=== PATIENT | female | born 1965 | race Caucasian/White ===

== ENCOUNTER 2020-04-17 20:01 | Emergency (ER) | payer MEDICAID ==
[~2020-04-17] VITALS: Ht 172.7 cm; Wt 65.9 kg
[2020-04-17] MEDS ORDERED: CEPH-585 PO (20:41)
[2020-04-17] MEDS ORDERED: SULF1TAB49 PO (20:41)
[2020-04-17 20:58] VITALS: BP 124/74
== END 2020-04-17 20:59 | disposition home or self-care (01) ==
LOC: ER 20:01
DX: L02.811 Cutaneous abscess of head [any part, except face] (principal); Z79.2 Long term (current) use of antibiotics
CPT/HCPCS: 99283

== ENCOUNTER 2023-03-03 10:24 | Emergency (ER) | payer MEDICAID ==
[~2023-03-03] VITALS: Ht 172.7 cm; Wt 65.1 kg
[2023-03-03 13:01] VITALS: BP 159/88; PULSE 70; RESP 18; TEMP 97.9; O2SAT 99
[2023-03-03] MEDS ORDERED: PRED20TA PO ×2 (13:21→13:27)
== END 2023-03-03 13:52 | disposition home or self-care (01) ==
LOC: ER 10:25
DX: J06.9 Acute upper respiratory infection, unspecified (principal); Z20.822 Contact with and (suspected) exposure to COVID-19
CPT/HCPCS: 36415; 71046; 87634; 87811; 99284

== ENCOUNTER 2023-03-05 12:10 | Emergency (ER) | payer MEDICAID ==
[~2023-03-05] VITALS: Ht 172.7 cm; Wt 66.0 kg
[~2023-03-05 12:10] MED LIST: PRED20TA PO
[2023-03-05 12:23] VITALS: BP 125/69; PULSE 80; TEMP 97.1; O2SAT 100
[2023-03-05 16:25] LABS: BASOPHILS % (AUTO) 0.1 % (0-1); EOSINOPHILS % (AUTO) 0 % (0-6); HEMATOCRIT 39.7 % (35.0-45.0); HEMOGLOBIN 13.5 g/dl (12.0-16.0); LYMPHOCYTES # (AUTO) 1.2 X10'3 (1.1-4.8); LYMPHOCYTES % (AUTO) 11.1 % (21-51); MEAN CORPUSCULAR HEMOGLOBIN 31.7 PG (27.0-31.0); MEAN CORPUSCULAR HGB CONC 33.9 g/dL (33.0-36.5); MEAN CORPUSCULAR VOLUME 93.4 FL (78-98); MEAN PLATELET VOLUME 7.7 FL (7.4-10.4); MONOCYTES # (AUTO) 1.1 X10'3 (0-0.9); MONOCYTES % (AUTO) 9.8 % (2-12); NEUTROPHILS # (AUTO) 8.8 X10'3 (1.8-7.7); PLATELET COUNT 330 X10'3 (140-440); RED BLOOD COUNT 4.25 X10'6 (4.20-5.60); RED CELL DISTRIBUTION WIDTH 13.3 % (11.5-14.5); WHITE BLOOD COUNT 11.1 X10'3 (4.5-11.0)
[2023-03-05 16:39] LABS: ALANINE AMINOTRANSFERASE 25 U/L (12-78); ALBUMIN/GLOBULIN RATIO 0.6 (1.1-1.5); ALKALINE PHOSPHATASE 122 IU/L (46-116); ANION GAP 10 (8-16); ASPARTATE AMINO TRANSFERASE 17 U/L (10-37); BILIRUBIN,TOTAL 0.5 MG/DL (0.1-1.0); BLOOD UREA NITROGEN 11 MG/DL (7-18); BUN/CREATININE RATIO 17.2 (10.0-20.0); CALCIUM 9.6 MG/DL (8.5-10.1); CHLORIDE 99 MMOL/L (99-107); CREATININE 0.64 MG/DL (0.40-0.90); GLUCOSE 140 MG/DL (70-104); POTASSIUM 3.9 MMOL/L (3.5-5.1); SODIUM 134 MMOL/L (135-145); TOTAL CARBON DIOXIDE 24.9 MMOL/L (24-32); TOTAL PROTEIN 8.3 G/DL (6.4-8.2); eCRCL 95 ML/MIN; eGFR > 90 ML/MIN
[2023-03-05] MEDS ORDERED: iohexol 350MG/ML 100ml bottle IV ONE (16:58)
[2023-03-05 17:52] VITALS: RESP 18
[2023-03-05] MEDS ORDERED: DOXYCYCLINE 100MG CAPSULE PO STA (18:11)
[2023-03-05] MEDS ORDERED: amox tr/potassium clavulanate 875/125mg TAB PO ONE (18:15)
[2023-03-05] MEDS ORDERED: AMOX-117 PO (18:23)
[2023-03-05] MEDS ORDERED: DOXY-457 PO (18:23)
== END 2023-03-05 19:10 | disposition home or self-care (01) ==
LOC: ER 12:15
DX: J18.9 Pneumonia, unspecified organism (principal); J44.9 Chronic obstructive pulmonary disease, unspecified; F17.200 Nicotine dependence, unspecified, uncomplicated; Z79.2 Long term (current) use of antibiotics; Z79.899 Other long term (current) drug therapy
CPT/HCPCS: 36415; 71045; 71275; 80053; 85025; 85379; 99285; J3490; Q9967

== ENCOUNTER 2024-04-30 12:57 | Emergency (ER) | payer MEDICAID ==
[~2024-04-30] VITALS: Ht 172.7 cm; Wt 70.0 kg
[2024-04-30 13:05] VITALS: BP 126/68; PULSE 96; RESP 16; O2SAT 100
[2024-04-30] MEDS ORDERED: AZIT-21 PO (15:13)
[2024-04-30] MEDS ORDERED: ALBU18HF2 INH (15:13)
[2024-04-30] MEDS ORDERED: GUAI120015 PO (15:13)
[2024-04-30] MEDS ORDERED: PRED20TA PO (15:13)
[2024-04-30 15:55] VITALS: TEMP 98.7
== END 2024-04-30 15:56 | disposition home or self-care (01) ==
LOC: ER 12:58
DX: J44.1 Chronic obstructive pulmonary disease with (acute) exacerbation (principal); R11.0 Nausea; R63.0 Anorexia; Z79.899 Other long term (current) drug therapy; Z20.822 Contact with and (suspected) exposure to COVID-19
CPT/HCPCS: 36415; 71045; 87502; 87503; 87811; 99284

== ENCOUNTER 2024-05-16 09:55 | Emergency (ER) | payer MEDICAID ==
[~2024-05-16] VITALS: Ht 172.7 cm; Wt 65.0 kg
[~2024-05-16 09:55] MED LIST changes: +ALBU18HF2 INH; +GUAI120015 PO
[2024-05-16 11:27] LABS: ALANINE AMINOTRANSFERASE 15 U/L (12-78); ALBUMIN 3.1 G/DL (3.4-5.0); ALBUMIN/GLOBULIN RATIO 0.6 (1.1-1.5); ALKALINE PHOSPHATASE 107 IU/L (46-116); ANION GAP 7 (8-16); BILIRUBIN,TOTAL 0.5 MG/DL (0.1-1.0); BLOOD UREA NITROGEN 10 MG/DL (7-18); BUN/CREATININE RATIO 13.9 (10.0-20.0); CALCIUM 8.5 MG/DL (8.5-10.1); CHLORIDE 94 MMOL/L (99-107); CREATININE 0.72 MG/DL (0.40-0.90); GLUCOSE 88 MG/DL (70-104); LIPASE 19 U/L (16-77); SODIUM 126 MMOL/L (135-145); TOTAL CARBON DIOXIDE 24.7 MMOL/L (24-32); TOTAL PROTEIN 8.5 G/DL (6.4-8.2); eCRCL 83 ML/MIN; eGFR 82 ML/MIN
[2024-05-16 11:29] LABS: ASPARTATE AMINO TRANSFERASE 18 U/L (10-37); POTASSIUM 4.4 MMOL/L (3.5-5.1)
[2024-05-16] MEDS ORDERED: LIDOcaine 2% Viscous 15ml cup MM PRN (11:55)
[2024-05-16] MEDS: dicyclomine 10mg/5ml oral solution 5ml UD bottle PO ONE (11:55)
[2024-05-16] MEDS ORDERED: normal saline 1000ML IV soln IVB ONE (11:55)
[2024-05-16 12:02] LABS: BASOPHILS % (AUTO) 0.6 % (0-1); NEUTROPHILS # (AUTO) 4.2 X10'3 (1.8-7.7)
[2024-05-16 12:05] LABS: EOSINOPHILS % (AUTO) 0.2 % (0-6); HEMOGLOBIN 13.8 g/dl (12.0-16.0); LYMPHOCYTES # (AUTO) 1.8 X10'3 (1.1-4.8); LYMPHOCYTES % (AUTO) 25.1 % (21-51); MEAN CORPUSCULAR HEMOGLOBIN 31.3 PG (27.0-31.0); MEAN CORPUSCULAR HGB CONC 33.8 g/dL (33.0-36.5); MEAN CORPUSCULAR VOLUME 92.5 FL (78-98); MEAN PLATELET VOLUME 7.1 FL (7.4-10.4); MONOCYTES % (AUTO) 14.1 % (2-12); PLATELET COUNT 393 X10'3 (140-440); RED BLOOD COUNT 4.43 X10'6 (4.20-5.60); RED CELL DISTRIBUTION WIDTH 13.4 % (11.5-14.5); WHITE BLOOD COUNT 7.1 X10'3 (4.5-11.0)
[2024-05-16] MEDS ORDERED: NICO-731 TOP (12:55)
[2024-05-16] MEDS ORDERED: FAMO40TA59 PO (12:55)
[2024-05-16 13:10] LABS: BILIRUBIN,URINE NEGATIVE (Neg); CLARITY,URINE CLEAR (Clear); COLOR,URINE YELLOW (Yellow); GLUCOSE, URINE NEGATIVE (Neg); KETONES,URINE NEGATIVE (Neg); LEUKOCYTE ESTERASE ,URINE NEGATIVE (Neg); NITRITES, URINE NEGATIVE (Neg); OCCULT BLOOD,URINE NEGATIVE (Neg); PROTEIN,URINE NEGATIVE (Neg); UROBILINOGEN,URINE 0.2 E.U/dL (0.2-1.0)
[2024-05-16 13:11] LABS: UA COLLECTION TYPE CLN CATCH MIDSTREAM; URINE HCG NEGATIVE (NEG)
[2024-05-16] MEDS: mag hydrox/Alum hydrox/simeth 30ml oral suspension PO ONE (13:12)
[2024-05-16] MEDS: normal saline 500ml IV soln 500 ML IV ONE (13:13)
[2024-05-16] MEDS: dicyclomine 10 MG capsule PO ONE (13:13)
[2024-05-16 14:13] VITALS: BP 107/63; PULSE 91; RESP 16; TEMP 98.5; O2SAT 100
== END 2024-05-16 14:14 | disposition home or self-care (01) ==
LOC: ER 09:55
DX: E87.1 Hypo-osmolality and hyponatremia (principal); K21.9 Gastro-esophageal reflux disease without esophagitis; K29.00 Acute gastritis without bleeding; J44.9 Chronic obstructive pulmonary disease, unspecified; F17.210 Nicotine dependence, cigarettes, uncomplicated
CPT/HCPCS: 36415; 71045; 76700; 80053; 81003; 81025; 83690; 84300; 85025; 96360; 99284; J7040

== ENCOUNTER 2024-07-08 14:52 | Inpatient (IN) | payer MEDICAID ==
[~2024-07-08] VITALS: Ht 172.7 cm; Wt 70.0 kg
[~2024-07-08 14:52] MED LIST changes: +FAMO40TA59 PO; +NICO-731 TOP; -PRED20TA PO; +naloxone 0.4 mg/ml inj ONE
--- NOTE | 2024-07-08 15:18 | Physician Documentation ---
History of Present Illness ~ Chief Complaint: Overdose Stated Complaint: OD Time Seen by MD: 15:17 Primary Medical Doctor: Dr Springer, Kellee LOFTON The patient presents with reported accidental overdose of fentanyl. She thought she was snorting a line of cocaine, and then stopped breathing. EMS gave 2 doses of Narcan and then she did wake up. Here now in the ED, the patient tells me that she feels hot and nauseous. She denies any history of fentanyl use or intentional fentanyl use. She thought she was using cocaine. She also drinks alcohol daily, tells me that she drank about 6 drinks today, which she normally drinks every day. She denies any other symptoms. Denies any trauma. No shortness of breath. Medication Reconciliation Allergies: Coded Allergies: No Known Allergies (Unverified , 03/05/23) Miscellaneous Medications Home Med List (No Home Medications), (Reported) Discontinued Medications Albuterol Sulfate (Ventolin Hfa), 2 PUFFS INH Q4HPRN PRN for wheezing Discontinued Reason: Other Famotidine (Famotidine), 1 TAB PO HS Discontinued Reason: Other Guaifenesin (Mucinex), 1 TAB PO Q12H Discontinued Reason: Other Nicotine (Nicotine Patch), 1 PATCH TOP DAILY Discontinued Reason: Other Past Medical History Past Medical History: COPD Past Surgical History: no surgical history Alcohol Use: None Drug Use: none Lives In: Home Review of Systems Respiratory: Denies: shortness of breath Cardiovascular: Reports: diaphoresis; Denies: chest pain Gastrointestinal: Reports: nausea Neurological: Denies: headache Physical Exam Vital Signs: Temperature: 98.7, Source: Temporal, Heart Rate: 86, Respiratory Rate: 15, BP: 114/59, Pulse Oximetry: 100, Weight: 70.000 Physical Exam General: This is a mildly sedated appearing middle-aged woman, diaphoretic and soaking the sheets HEENT: Atraumatic, oropharynx appears dry. Pupils are 2 mm and symmetric Heart: Regular rate and rhythm, normal-appearing peripheral perfusion Lungs: Appears to have mild respiratory depression. Clear breath sounds bilateral, normal oxygen saturation on room air Abdomen: Soft, nondistended, nontender all quadrants Extremities: Warm and well-perfused. No traumatic findings Neuro: The patient appears sedated, but does respond to voice and answers questions appropriately. Psychiatric: Sedated, slow to respond Progress Results/Orders Results/Orders Orders - LIAM CAZARES MD Page Hospitalist (07/08/24 19:44) Fill Out Med Reconciliation (07/08/24 19:44) Completed Orders - LIAM CAZARES MD Naloxone 0.4 Mg/Ml Inj (Narcan 0.4mg/Ml (07/08/24 19:45) Normal Saline 500ml... W/Naloxone 2mg/2m (07/08/24 20:35) Naloxone 0.4 Mg/Ml Inj (Narcan 0.4mg/Ml (07/08/24 20:45) Medications Received in ER Medications (Trade) Dose Ordered Sig/Erin Route PRN Reason Start Time Stop Time Status Last Admin Dose Admin (Narcan 0.4mg/ml inj) 0.4 mg ONCE ONCE IV 07/08/24 19:45 07/08/24 19:46 DC 07/08/24 19:49 0.4 MG Naloxone HCl 2 mg/ Sodium Chloride 500 ml @ 25 mls/hr Q20H IV 07/08/24 20:35 07/08/24 22:50 DC 07/08/24 21:08 25 MLS/HR (Narcan 0.4mg/ml inj) 0.4 mg ONCE ONCE IV 07/08/24 20:45 07/08/24 20:50 DC 07/08/24 20:58 0.4 MG Sodium Chloride 1,000 ml @ 100 mls/hr Q10H IV 07/08/24 21:55 07/08/24 22:59 100 MLS/HR Vital Signs 07/08/24 07/08/24 07/08/24 07/08/24 14:55 15:02 16:42 16:46 Temp 98.7 Pulse 86 68 67 Resp 15 15 10 12 B/P (MAP) 114/59 121/70 (87) Pulse Ox 100 63 97 O2 Flow Rate 2.0 07/08/24 07/08/24 07/08/24 07/08/24 18:16 18:35 18:36 19:49 Pulse 69 70 78 Resp 10 16 12 10 B/P (MAP) 128/68 (88) 122/73 Pulse Ox 68 100 90 O2 Flow Rate 0 07/08/24 07/08/24 07/08/24 07/08/24 19:58 20:58 21:05 22:00 Pulse 58 66 60 74 Resp 17 6 16 16 B/P (MAP) 134/77 (96) 123/79 (94) 137/76 (96) Pulse Ox 100 100 98 99 O2 Flow Rate 2.0 2.0 Laboratory Tests Test 07/08/24 18:05 07/08/24 18:19 07/08/24 22:04 White Blood Count 6.9 Red Blood Count 4.24 Hemoglobin 13.0 Hematocrit 39.1 Mean Corpuscular Volume 92.3 Mean Corpuscular Hemoglobin 30.8 Mean Corpuscular Hemoglobin Concent 33.3 Red Cell Distribution Width 15.1 H Platelet Count 259 Mean Platelet Volume 8.0 Neutrophils (%) (Auto) 80.9 H Lymphocytes (%) (Auto) 10.0 L Monocytes (%) (Auto) 8.3 Eosinophils (%) (Auto) 0.3 Basophils (%) (Auto) 0.5 Neutrophils # (Auto) 5.5 Lymphocytes # (Auto) 0.7 L Monocytes # (Auto) 0.6 Eosinophils # (Auto) 0.0 Basophils # (Auto) 0.0 CBC Comment Sodium Level 140 Potassium Level 4.5 Chloride Level 106 Carbon Dioxide Level 29.4 Anion Gap 5 L Blood Urea Nitrogen 17 Creatinine 0.79 Estimated GFR/1.73 m2 74 BUN/Creatinine Ratio 21.5 H Glucose Level 111 H Calcium Level 8.7 Total Bilirubin 0.4 Aspartate Amino Transf (AST/SGOT) 49 H Alanine Aminotransferase (ALT/SGPT) 33 Alkaline Phosphatase 120 H Total Protein 7.5 Albumin 3.9 Globulin 3.6 Albumin/Globulin Ratio 1.1 Chemistry Comments Ethyl Alcohol Level < 10 Glucometer 98 Urine Specimen Description Cln catch midstream Urine Color Yellow Urine Clarity Clear Urine pH 6.0 Urine Specific [place] >=1.030 Urine Protein 30 H Urine Glucose (UA) Negative Urine Ketones Negative Urine Occult Blood Negative Urine Nitrite Negative Urine Bilirubin Negative Urine Urobilinogen 0.2 Urine Leukocyte Esterase Negative Urine RBC 0-2 Urine WBC 0-4 Urine Squamous Epithelial Cells Few Urine Amorphous Urates 1+ Urine Bacteria None seen Urine Hyaline Casts 0-3 Urine Mucus Moderate Urine Culture Indicated Not ind Volume Urine Centrifuged 10 ml Urine Comment Urine Opiates Screen Negative Urine Methadone Screen Negative Urine Fentanyl Screen Negative Urine Barbiturates Screen Negative Urine Phencyclidine Screen Negative Urine Amphetamines Screen Negative Urine Benzodiazepines Screen Negative Urine Cocaine Screen Negative Urine Cannabinoids Screen Positive Drug Screen Comment Medical Decision Making Findings Dr. Cazares: Received care of patient to monitored until clinically sober however after 4 hours patient is continuing to have significant sedation requiring additional Narcan usage despite given Narcan in the field upon arrival in additional dose as well as a additional dose by myself therefore we will admit for continued monitoring and need for possible re administration of Narcan. Differential Dx:Considerations: Include: Alcohol abuse, Conversion disorder, Drug Overdose-Accidental, Drug Overdose-Intentional, Encephalopathy, Liver failure, Suicidal attempt Additional Comment Differential includes intracranial hemorrhage or head injury Assessment The patient presents with a likely opiate overdose. Here in the ED, she was somewhat sedated and slow to respond as well as diaphoretic. Initially it was unclear if this was actually an opiate overdose and so laboratory testing and a head CT were obtained. CT without intracranial hemorrhage or other acute abnormality. Labs are pending. She was given multiple doses of Narcan with good response. She will require further observation and possibly further Narcan or even admission if her symptoms do not improve. The patient was signed out at shift change, pending laboratory testing/urine drug screen and further observation. Departure Admitted to Inpatient Unit: yes, to hospitalist Impression: Primary Impression: Poisoning by opiate or related narcotic Referrals: NO PRIMARY CARE PROVIDER (PCP) Signature Scribe Signature: na Attestation: The note accurately reflects work and decisions made by me.Liam Cazares MD 07/08/24 19:55 na KIRSTEN PURVIS MD July 08, 2024 15:18 LIAM CAZARES MD July 08, 2024 19:50
[2024-07-08] MEDS: ondansetron/PF 4mg/2ml inj IV ONE (15:25)
[2024-07-08] MEDS: naloxone 0.4 mg/ml inj IV ONE ×4 (16:42→20:58)
--- NOTE | 2024-07-08 17:49 | RADIOLOGY REPORT ---
Procedure: CT CT [facility] Study Date and Requested Time: 07/08/2024 05:27 PM History: dizzy, overdose, altered Comparison: None Dose: CTDI: 41.98 mGy DLP: 680.8 mGycm Technique: Multiplanar images obtained through the brain without intravenous contrast. Findings: Normal brain volume and formation. Mild chronic small vessel ischemic changes. Bilateral basal gangli a physiologic calcification. No hemorrhages, masses, mass effect, midline shift, herniation or cytotoxic edema following a large v ascular territory. No intra-axial or extra-axial fluid collections. No evidence of hydrocephalus. The basal cisterns are patent. The pituitary gland, sella and parasellar regions are unremarkable. The cerebellar tonsils are in nor mal position. The cerebellum is unremarkable. The orbits and globes are unremarkable. The paranasal sinuses and mastoids are clear. There are no wo rrisome calvarial lesions. Impression: No evidence of acute intracranial abnormality.
[2024-07-08] MEDS: normal saline 1000ml 1,000 ML IV ONE (18:06)
[2024-07-08 18:58] LABS: BASOPHILS % (AUTO) 0.5 % (0-1); EOSINOPHILS % (AUTO) 0.3 % (0-6); HEMATOCRIT 39.1 % (35.0-45.0); LYMPHOCYTES # (AUTO) 0.7 X10'3 (1.1-4.8); MEAN CORPUSCULAR HEMOGLOBIN 30.8 PG (27.0-31.0); MEAN CORPUSCULAR HGB CONC 33.3 g/dL (33.0-36.5); MEAN CORPUSCULAR VOLUME 92.3 FL (78-98); MONOCYTES # (AUTO) 0.6 X10'3 (0-0.9); MONOCYTES % (AUTO) 8.3 % (2-12); NEUTROPHILS # (AUTO) 5.5 X10'3 (1.8-7.7); NEUTROPHILS % (AUTO) 80.9 % (42-75); PLATELET COUNT 259 X10'3 (140-440); RED BLOOD COUNT 4.24 X10'6 (4.20-5.60); RED CELL DISTRIBUTION WIDTH 15.1 % (11.5-14.5); WHITE BLOOD COUNT 6.9 X10'3 (4.5-11.0)
[2024-07-08 19:12] LABS: ALANINE AMINOTRANSFERASE 33 U/L (12-78); ALBUMIN 3.9 G/DL (3.4-5.0); ALBUMIN/GLOBULIN RATIO 1.1 (1.1-1.5); ALKALINE PHOSPHATASE 120 IU/L (46-116); ANION GAP 5 (8-16); ASPARTATE AMINO TRANSFERASE 49 U/L (10-37); BILIRUBIN,TOTAL 0.4 MG/DL (0.1-1.0); BLOOD UREA NITROGEN 17 MG/DL (7-18); BUN/CREATININE RATIO 21.5 (10.0-20.0); CALCIUM 8.7 MG/DL (8.5-10.1); CHLORIDE 106 MMOL/L (99-107); CREATININE 0.79 MG/DL (0.40-0.90); ETHANOL < 10 MG/DL (<10); GLUCOSE 111 MG/DL (70-104); POTASSIUM 4.5 MMOL/L (3.5-5.1); SODIUM 140 MMOL/L (135-145); TOTAL CARBON DIOXIDE 29.4 MMOL/L (24-32); TOTAL PROTEIN 7.5 G/DL (6.4-8.2); eCRCL 75 ML/MIN; eGFR 74 ML/MIN
[2024-07-08] MEDS: naloxone 2mg/2ml inj 2 MG in normal saline 500ml IV soln 498 ML IV SCH (21:08)
--- NOTE | 2024-07-08 21:25 | ELECTROCARDIOGRAPH REPORT ---
[facility] Test Date: 2024-07-08 Test Time: 21:23:35 Pat Name: MONTY GUZMAN Department: [facility]- Patient ID: [facility]-[id number] Room: [place] [address] Gender: F Continuous Wave Operator: : 1965 Requested By: SHAYE ZHANG Order Number: [id number] Reading MD: Dr. Patrice Conley Measurements Intervals [place] Rate: 57 P: 68 AK: 179 QRS: 1 QRSD: 152 T: 53 QT: 552 QTc: 538 Interpretive Statements Sinus bradycardia Probable left atrial enlargement Left ventricular hypertrophy Anterior Q waves, possibly due to LVH Prolonged QT interval Electronically Signed On 07-14-2024 21:45:[address] Patrice Conley Please click the below link to view image of tracing.
[2024-07-08] MEDS ORDERED: NO HOME MEDS (21:27)
[2024-07-08] MEDS ORDERED: naloxone 0.4 mg/ml inj ONE (21:45)
[2024-07-08] MEDS ORDERED: potassium Cl 20 mEq SR tablet PO PRN ×2 (21:55)
[2024-07-08] MEDS ORDERED: potassium Cl 40MEQ/1/2NS 520ml 520 ML IV PRN (21:55)
[2024-07-08] MEDS ORDERED: magnesium Cl slow-release 64mg tablet PO PRN (21:55)
[2024-07-08] MEDS ORDERED: magnesium sulf-water 2g/50mL 50 ML IV PRN (21:55)
[2024-07-08] MEDS ORDERED: mag hydrox/Alum hydrox/simeth 30ml oral suspension PO PRN (21:55)
[2024-07-08] MEDS ORDERED: ondansetron/PF 4mg/2ml inj IV PRN (21:55)
[2024-07-08] MEDS ORDERED: magnesium hydroxide 30ml (MOM) UD suspension PO PRN (21:55)
[2024-07-08] MEDS ORDERED: magnesium sulf-water 4G/100mL 100 ML IV PRN (21:55)
[2024-07-08] MEDS ORDERED: dextrose 50%-water 50ml dispensing syringe IV PRN (21:55)
[2024-07-08] MEDS ORDERED: LORazepam 2 mg/ml vial IV PRN (21:55)
[2024-07-08] MEDS ORDERED: acetaminophen 325mg tablet PO PRN (21:55)
[2024-07-08 22:31] LABS: BILIRUBIN,URINE NEGATIVE (Neg); CLARITY,URINE CLEAR (Clear); COLOR,URINE YELLOW (Yellow); GLUCOSE, URINE NEGATIVE (Neg); KETONES,URINE NEGATIVE (Neg); LEUKOCYTE ESTERASE ,URINE NEGATIVE (Neg); NITRITES, URINE NEGATIVE (Neg); OCCULT BLOOD,URINE NEGATIVE (Neg); PROTEIN,URINE 30 mg/dl (Neg); UROBILINOGEN,URINE 0.2 E.U/dL (0.2-1.0)
[2024-07-08 22:43] LABS: MAGNESIUM 2.4 MG/DL (1.5-2.4); PHOSPHORUS 4.9 MG/DL (2.3-4.5)
[2024-07-08 22:49] LABS: UA COLLECTION TYPE CLN CATCH MIDSTREAM; URINE AMPHETAMINE SCREEN NEGATIVE (Neg); URINE BARBITUATE SCREEN NEGATIVE (Neg); URINE BENZODIAZEPINES SCREEN NEGATIVE (Neg); URINE CANNABINOID SCREEN POSITIVE (Neg); URINE COCAINE SCREEN NEGATIVE (Neg); URINE METHADONE SCREEN NEGATIVE (Neg); URINE OPIATE SCREEN NEGATIVE (Neg); URINE PHENCYCLIDINE SCREEN NEGATIVE (Neg)
[2024-07-08 22:51] LABS: HYALINE CASTS 0-3 /LPF (NEGATIVE); MUCUS STRANDS MODERATE /LPF (Neg); SQUAMOUS EPITHELIAL CELL,UR FEW /LPF (FEW)
[2024-07-08 22:53] LABS: AMORPHOUS URATES 1+; BACTERIA,URINE NONE SEEN /HPF (Neg); RBC,URINE 0-2 /HPF (0-2); WBC,URINE 0-4 /HPF (0-4)
--- NOTE | 2024-07-08 22:57 | HISTORY AND PHYSICAL-Residence ---
History & Physical Providers to CC Resident Creating Document: SHAYE ZHANG, AMY ~ History of Present Illness Primary Medical Doctor: Kellee Diaz Reason for Admit\Complaint: Polysubstance use, possible opioid intoxication History of Present Illness 59-year-old female with PMH of COPD, polysubstance use was brought to ED after having a possible substance intoxication. After the ED arrival patient was unresponsive with apneic breathing. She responded well to Narcan. I evaluated the patient in ED after she received Narcan dose. She is drowsy and going back to sleep within 1-2 minutes but able to answer questions. As per the history provided she had 6 cans of beer today afternoon and she snorted what she stated as crack after which she become unconscious. Patient's friend noticed that she was unconscious and called EMS and patient was brought to the ED via ambulance. On ED evaluation patient did not report any subjective complaint. She denied chest pain, SOB, abdominal pain, nausea, vomiting and other subjective complaints. She has extensive history of alcohol use, marijuana use, meth use. On ED arrival patient received boluses of Narcan with which she began wide awake alert. As she is responding well to Narcan patient is getting admitted for possible opioid intoxication. Allergies: Coded Allergies: No Known Allergies (Unverified , 03/05/23) Home Medications Home Medications Active Reported No Home Medications (Home Med List) Each Past Medical History Past Medical History COPD, polysubstance use: Alcohol, tobacco, marijuana, meth Past Surgical History Surgical History Comment Left knee ligament repair Past Social History Social History Comment Patient lives alone, independent, walks without assistance. Alcohol: 6 to 12 cans of beer almost regularly, last drink today afternoon Tobacco: Smokes a pack of cigarettes per day for the past 30 years Marijuana: Smokes almost regularly Meth: Snorting meth almost regularly Other substance use Alcohol Use: None Drug Use: None Lives In: Home ROS All Other Systems: Reviewed and Negative Respiratory: Denies: shortness of breath Cardiovascular: Reports: diaphoresis; Denies: chest pain Gastrointestinal: Reports: nausea Neurological: Denies: headache Exam Vitals: Vital Signs Date Time Temp Pulse Resp B/P (MAP) Pulse Ox O2 Delivery O2 Flow Rate FiO2 07/08/24 21:05 60 16 123/79 (94) 98 2.0 07/08/24 14:55 98.7 General: General: Elderly female, thin built, drowsy, lethargic, not in distress HEENT: Conjunctiva pink, Sclera clear, pupils 3 mm reacting to light, mucous membranes dry Neck: Supple without masses and tenderness. Resp: Unlabored. Lungs clear to auscultation bilaterally. Heart: Regular Rate and rhythm, normal S1 and S2 without murmur, rub or gallop. Abdomen: Soft and non tender no organomegaly Extremities: No cyanosis,clubbing or edema. DISTRICT REPRESENTATIVE: Patient drowsy, lethargic answering questions appropriately, no motor deficits, no sensory deficits noted. Cranial nerves intact Skin: Warm and Dry. Diagnostic Data Last Recorded Lab Results: 07/08/24180407/08/[id number] Counseling Services Smoking & Tobacco Cessation: 3-10 Minutes Advance Care Planning Advanced Care plannin - 30 Minutes (Advanced care planning discussed at the bedside for approximately 15-20 minutes including chest compressions, mechanical ventilation and defibrillation. Patient opted for full code status.) Additional Plan 59-year-old female with history of COPD, polysubstance use was brought to ED in a state of unconscious after having unknown substance intoxication. On ED arrival patient was drowsy with apneic breathing. She received a bolus of Narcan with which she responded. Patient getting admitted for possible opioid intoxication. Assessment and plan: Possible opioid intoxication: Patient was brought to ED after being found unresponsive at home She snorted some unknown substance On ED arrival she was drowsy with apneic breathing responded well to Narcan Urine tox: Pending, follow up Patient received 4 boluses of Narcan and she was started on Narcan drip Currently drip was stopped Started Narcan 1 mg IV Q 15 p.r.n. for total of 4 doses Continue respiratory status and give Narcan 1 mg IV as needed Alcohol use disorder: Currently not in withdrawal Patient has chronic alcohol use history for approximately 30 years 6 - 12 cans of beer regularly, last drink today afternoon ETOH:< 10 She was placed on alcohol withdrawal protocol health services administrator consulted Tobacco use disorder: 30 years of smoking history, a pack of cigarettes every day Currently placed on nicotine 40 mg per Other substance use disorder: Patient also smokes marijuana and snort methamphetamine health services administrator consulted COPD: Not in exacerbation Started albuterol inhalers as needed Baseline not on oxygen, currently started on oxygen supplement Wean oxygen if SpO2 more than 90 Code status: Full code DVT: Lovenox 40 mg subcutaneous once daily Nocturnal accounting system expert attestation of resident HP. Attestation of HP only, care immediately directed to hospitalist team - Narcan prn 1 mg - ETOH WD monitoring - UDS and methadone - Serina for DVT proph Patient seen through remote audiovisual assessment through HIPAA compliant setup. All labs, flowsheets, and images reviewed. Date of Service: July 08, 2024 Billing Provider: LEONIDAS IGLESIAS Jr., KOTESHWAREDDY, RES July 08, 2024 22:57 LEONIDAS IGLESIAS Jr., DO July 09, 2024 04:26
[2024-07-08] MEDS: normal saline 1000ml 1,000 ML IV SCH (22:59)
[2024-07-08] MEDS: naloxone 2mg/2ml inj IV PRN (22:59)
[2024-07-08] MEDS: ringers solution, lacted 1,000 ML IV ONE (23:03)
[2024-07-08] MEDS: nicotine 14mg patch - 24hr TD ONE (23:08)
[2024-07-09] VITALS (13 sets, daily range): BP systolic 101–126; BP diastolic 47–70; PULSE 67–90; RESP 10–25; TEMP 97.5–98.2; O2SAT 93–98
[2024-07-09] MEDS: naloxone 0.4 mg/ml inj ONE ×2 (00:46→00:48)
[2024-07-09] MEDS: acetaminophen 325mg tablet PO PRN (01:08)
[2024-07-09] MEDS: naloxone 2mg/2ml inj IV PRN (06:47)
[2024-07-09 06:53] LABS: BASOPHILS % (AUTO) 0.3 % (0-1); EOSINOPHILS % (AUTO) 0.4 % (0-6); HEMATOCRIT 35.8 % (35.0-45.0); HEMOGLOBIN 11.9 g/dl (12.0-16.0); LYMPHOCYTES # (AUTO) 0.8 X10'3 (1.1-4.8); LYMPHOCYTES % (AUTO) 9.2 % (21-51); MEAN CORPUSCULAR HEMOGLOBIN 30.6 PG (27.0-31.0); MEAN CORPUSCULAR HGB CONC 33.2 g/dL (33.0-36.5); MEAN CORPUSCULAR VOLUME 92.3 FL (78-98); MEAN PLATELET VOLUME 7.5 FL (7.4-10.4); MONOCYTES # (AUTO) 0.5 X10'3 (0-0.9); MONOCYTES % (AUTO) 6.1 % (2-12); NEUTROPHILS # (AUTO) 7.4 X10'3 (1.8-7.7); PLATELET COUNT 230 X10'3 (140-440); RED BLOOD COUNT 3.88 X10'6 (4.20-5.60); RED CELL DISTRIBUTION WIDTH 14.9 % (11.5-14.5); WHITE BLOOD COUNT 8.8 X10'3 (4.5-11.0)
[2024-07-09 07:10] LABS: ALANINE AMINOTRANSFERASE 26 U/L (12-78); ALBUMIN 3.4 G/DL (3.4-5.0); ALBUMIN/GLOBULIN RATIO 1.1 (1.1-1.5); ALKALINE PHOSPHATASE 106 IU/L (46-116); ANION GAP 5 (8-16); ASPARTATE AMINO TRANSFERASE 30 U/L (10-37); BILIRUBIN,TOTAL 0.6 MG/DL (0.1-1.0); BLOOD UREA NITROGEN 13 MG/DL (7-18); CALCIUM 8.4 MG/DL (8.5-10.1); CHLORIDE 105 MMOL/L (99-107); CREATININE 0.62 MG/DL (0.40-0.90); GLUCOSE 110 MG/DL (70-104); POTASSIUM 4.2 MMOL/L (3.5-5.1); SODIUM 138 MMOL/L (135-145); TOTAL CARBON DIOXIDE 28.1 MMOL/L (24-32); TOTAL PROTEIN 6.6 G/DL (6.4-8.2); eCRCL 96 ML/MIN; eGFR > 90 ML/MIN
[2024-07-09] MEDS: K and/or MAG REPLACEMENT MC SCH (08:00)
[2024-07-09] MEDS: thiamine 100mg/ml 2ml inj. IV SCH (08:40)
[2024-07-09] MEDS: enoxaparin 40mg/0.4ml syringe SUBCUT SCH (08:41)
[2024-07-09] MEDS: folic acid 1mg/0.2ml inj IV SCH (11:56)
[2024-07-09 12:06] LABS: URINE AMPHETAMINE SCREEN POSITIVE (Neg); URINE BARBITUATE SCREEN NEGATIVE (Neg); URINE BENZODIAZEPINES SCREEN NEGATIVE (Neg); URINE CANNABINOID SCREEN POSITIVE (Neg); URINE COCAINE SCREEN NEGATIVE (Neg); URINE METHADONE SCREEN NEGATIVE (Neg); URINE OPIATE SCREEN NEGATIVE (Neg); URINE PHENCYCLIDINE SCREEN NEGATIVE (Neg)
[2024-07-09] MEDS: naloxone 2mg/2ml inj 2 MG in normal saline 500ml IV soln 498 ML IV SCH (12:51)
--- NOTE | 2024-07-09 14:58 | PROGRESS NOTE- Residence ---
Progress Note - Resident Providers to CC Resident Creating Document: WINNIE COLLINS RES ~ Antibiotic Timeout Antibiotic Ordered?: No Subjective Patient was seen and examined at the bedside. In the morning, she was alert and oriented; was able to answer all my questions with the relevant details, however, after an hour, she become drowsy and apneic. She received three 1 mg doses of Narcan at night, and to 1 mg Narcan during the day on different occasions. ACMT/AACT recommends continuous naloxone infusion when patient relapse into respiratory depression after bolus doses. Therefore, naloxone infusion started. Objective Vital Signs Date Time Temp Pulse Resp B/P (MAP) Pulse Ox O2 Delivery O2 Flow Rate FiO2 07/09/24 11:00 98.0 88 14 118/61 (80) 93 Room Air 07/09/24 06:00 2.0 07/09/24 02:36 28 General: Awake and Alert, no acute distress. HEENT: Conjunctiva pink, Sclera clear, Mucus Membranes moist. Neck: Supple without masses and tenderness. Resp: Unlabored. Lungs clear to auscultation bilaterally. Heart: Regular Rate and rhythm, normal S1 and S2 without murmur, rub or gallop. Abdomen: Soft and non tender no organomegaly Extremities: No cyanosis,clubbing or edema. Skin: Warm and Dry. FISH HATCHERY SPECIALIST: In the morning she was alert oriented, 1 hour later found her lethargic, drowsy, Result Diagram: 07/09/24 0616 07/09/2416 Advance Care Planning Advanced Care plannin - 30 Minutes Assessment Assessment The patient presents with a likely opiate overdose. Here in the ED, she was somewhat sedated and slow to respond as well as diaphoretic. Initially it was unclear if this was actually an opiate overdose and so laboratory testing and a head CT were obtained. CT without intracranial hemorrhage or other acute abnormality. Labs are pending. She was given multiple doses of Narcan with good response. She will require further observation and possibly further Narcan or even admission if her symptoms do not improve. The patient was signed out at shift change, pending laboratory testing/urine drug screen and further observation. Plan Plan Fentanyl overdose/toxicity Substance use disorder/UDS positive for methamphetamine Recurrent episodes of drowsiness respiratory depression - responds well to Narcan Received repeated boluses of Narcan for recurrent respiratory depression ACMT/AACT recommends continuous naloxone infusion when patient relapse into respiratory depression after bolus doses. Therefore, naloxone infusion started. Narcan infusion initiated Perfusing well while breathing ambient air-supplemental oxygen if hypoxia Monitor closely for hyperventilation or need for airway intervention Continuous telemetry, monitor for arrhythmia, QTC prolongation Continue IV hydration Substance use navigation consult requested Alcohol use disorder: Alcohol withdrawal protocol in place Continue thiamine and folic acid IV career services manager consulted Tobacco use disorder: One pack/day for 30 years Nicotine patch Smoking cessation counseling provided COPD: Not in exacerbation Albuterol inhaler as needed Code status: Full code DVT prophylaxis: Lovenox 40 mg SQ daily Winnie [facility] Internal [facility] Resident Date of Service: July 09, 2024 Billing Provider: DEV ORTEGA MD,WINNIE, RES July 09, 2024 14:58
[2024-07-09] MEDS: naloxone 0.4 mg/ml inj IV PRN (19:48)
[2024-07-09] MEDS: LORazepam 2 mg/ml vial IV PRN (21:19)
[2024-07-09] MEDS: haloperidol lactate 5mg/ml inj IM PRN (23:30)
[2024-07-10] VITALS (11 sets, daily range): BP systolic 90–121; BP diastolic 50–56; PULSE 89–105; RESP 10–16; TEMP 97.7–100.7; O2SAT 92–96
[2024-07-10] MEDS: LORazepam 2 mg/ml vial IV ONE ×2 (00:10→00:24)
[2024-07-10 07:00] LABS: ALANINE AMINOTRANSFERASE 21 U/L (12-78); ALBUMIN 2.6 G/DL (3.4-5.0); ALBUMIN/GLOBULIN RATIO 0.9 (1.1-1.5); ALKALINE PHOSPHATASE 95 IU/L (46-116); ANION GAP 5 (8-16); BILIRUBIN,TOTAL 0.7 MG/DL (0.1-1.0); BLOOD UREA NITROGEN 7 MG/DL (7-18); BUN/CREATININE RATIO 15.2 (10.0-20.0); CALCIUM 8.3 MG/DL (8.5-10.1); CHLORIDE 105 MMOL/L (99-107); CREATININE 0.46 MG/DL (0.40-0.90); GLUCOSE 91 MG/DL (70-104); SODIUM 135 MMOL/L (135-145); TOTAL CARBON DIOXIDE 25.2 MMOL/L (24-32); TOTAL PROTEIN 5.6 G/DL (6.4-8.2); eCRCL 130 ML/MIN; eGFR > 90 ML/MIN
[2024-07-10 07:09] LABS: ASPARTATE AMINO TRANSFERASE 34 U/L (10-37); POTASSIUM 4.3 MMOL/L (3.5-5.1)
[2024-07-10 07:55] LABS: BASOPHILS % (AUTO) 0.2 % (0-1); EOSINOPHILS # (AUTO) 0.1 X10'3 (0-0.9); EOSINOPHILS % (AUTO) 0.7 % (0-6); HEMATOCRIT 31.5 % (35.0-45.0); HEMOGLOBIN 10.4 g/dl (12.0-16.0); LYMPHOCYTES # (AUTO) 0.9 X10'3 (1.1-4.8); LYMPHOCYTES % (AUTO) 9.5 % (21-51); MEAN CORPUSCULAR HEMOGLOBIN 30.9 PG (27.0-31.0); MEAN CORPUSCULAR HGB CONC 33.1 g/dL (33.0-36.5); MEAN CORPUSCULAR VOLUME 93.2 FL (78-98); MEAN PLATELET VOLUME 7.8 FL (7.4-10.4); MONOCYTES # (AUTO) 0.5 X10'3 (0-0.9); MONOCYTES % (AUTO) 5.6 % (2-12); NEUTROPHILS # (AUTO) 7.7 X10'3 (1.8-7.7); PLATELET COUNT 155 X10'3 (140-440); RED BLOOD COUNT 3.38 X10'6 (4.20-5.60); RED CELL DISTRIBUTION WIDTH 14.8 % (11.5-14.5); WHITE BLOOD COUNT 9.2 X10'3 (4.5-11.0)
--- NOTE | 2024-07-10 10:52 | PROGRESS NOTE- Residence ---
Progress Note - Resident Providers to CC Resident Creating Document: WINNIE COLLINS RES ~ Antibiotic Timeout Antibiotic Ordered?: No Subjective Patient was seen and examined at the bedside. She was tested positive for fentanyl and methamphetamine on drug screening. She was on Narcan drip, which was discontinued at 2:00 a.m. last night. This morning, noted to have respiratory depression with respiratory rate of only eight, and altered mental status suggestive of ongoing opioids effect. Responded promptly to 1 mg IV Narcan with improvement in mental status. However following Narcan administration, patient exhibited hallucination and agitation, more likely from alcohol withdrawal. Responded well to 2 mg IV Ativan. Currently, she is being treated for both fentanyl overdose and severe alcohol withdrawal. I asked the nurse manager van again today to involve the poison control. Objective Vital Signs Date Time Temp Pulse Resp B/P (MAP) Pulse Ox O2 Delivery O2 Flow Rate FiO2 07/10/24 09:32 100.7 07/10/24 08:10 78 19 108/62 98 07/10/24 08:00 Nasal Cannula 3.0 07/09/24 19:59 28 \General: Drowsy and agitated HEENT: Conjunctiva pink, Sclera clear, Mucus Membranes moist. Neck: Supple without masses and tenderness. Resp: Unlabored. Lungs clear to auscultation bilaterally. Heart: Regular Rate and rhythm, normal S1 and S2 without murmur, rub or gallop. Abdomen: Soft and non tender no organomegaly Extremities: No cyanosis,clubbing or edema. Skin: Warm and Dry. AIR DIRECTOR: Drowsy, severely agitated, hallucinating due to alcohol withdrawal Result Diagram: 07/10/24 0726 07/10/24 0607 Advance Care Planning Advanced Care plannin - 30 Minutes Assessment Assessment The patient presents with a likely opiate overdose. Here in the ED, she was somewhat sedated and slow to respond as well as diaphoretic. Initially it was unclear if this was actually an opiate overdose and so laboratory testing and a head CT were obtained. CT without intracranial hemorrhage or other acute abnormality. Labs are pending. She was given multiple doses of Narcan with good response. She will require further observation and possibly further Narcan or even admission if her symptoms do not improve. The patient was signed out at shift change, pending laboratory testing/urine drug screen and further observation. Plan Plan Fentanyl overdose/toxicity Substance use disorder/UDS positive for fentanyl and methamphetamine Recurrent episodes of drowsiness respiratory depression - responds well to Narcan Received repeated boluses of Narcan for recurrent respiratory depression Narcan infusion discontinued Perfusing well with 3 L supplemental oxygen via nasal cannula; keep oxygen saturation between 90- 94% Monitor closely for hypoventilation or need for airway intervention Continuous telemetry, monitor for arrhythmia, QTC prolongation Continue IV hydration Substance use navigation consult requested Alcohol use disorder: Severe alcohol withdrawal symptoms: CIWA-Ar Score 28 Symptom-triggered regimen for YANELIS - Ativan 2 mg IV as needed for CIWA-Ar >10 (parameters included in the order). Fixed-schedule regimen for YANELIS: Ativan 2 mg every 6 hours scheduled Transition to P.O: We will transition to Chlordiazepoxide 25 mg PO every 6 hours on day 1, every 8 hours on day 2, every12 hours on day 3, every 24 hours (at night) on days 4 and 5, then discontinue Continue thiamine and folic acid IV shipping services sales representative consulted Mild Rhabdomyolysis: Evidenced by elevated CK and myoglobin, LDH and uric acid pending. No signs of acute kidney injury, but risk remains due to muscle breakdown products Etiology, fentanyl and methamphetamine IV hydration, goal of urine output >200-300 mL/hour. Monitor urine output Monitor renal function, BMP Jul 10 2024: This morning, noted to have respiratory depression with respiratory rate of only eight, and altered mental status suggestive of ongoing opioids effect. Responded promptly to 1 mg IV Narcan with improvement in mental status. However following Narcan administration, patient exhibited acute panic, severe agitation, hallucination, accompanied by paroxysmal sweats, consistent with s evere alcohol withdrawal. Initiated treatment using a combination of fixed- scheduled, and symptom-triggered benzodiazepine protocol per CIWA guidelines. Currently, she is being treated for both fentanyl overdose and severe alcohol withdrawal. I asked the nurse manager van again today to involve the poison control. Mild rhabdomyolysis likely secondary to methamphetamine use, without current evidence of acute kidney injury. Tobacco use disorder: One pack/day for 30 years Nicotine patch Smoking cessation counseling provided COPD: Not in exacerbation Albuterol inhaler as needed Code status: Full code DVT prophylaxis: Lovenox 40 mg SQ daily Winnie Collins Internal Medicine Resident Date of Service: July 10, 2024 Billing Provider: DEV ORTEGA MD, SHAMS, RES July 10, 2024 10:52
[2024-07-10] MEDS: LORazepam 2 mg/ml vial IV SCH (13:36)
[2024-07-10 14:07] LABS: CREATINE KINASE 390 U/L (26-192)
[2024-07-10 18:10] LABS: URIC ACID 2.7 MG/DL (2.5-6.2)
[2024-07-10 18:12] LABS: LACTATE DEHYDROGENASE 262 U/L (81-234)
[2024-07-11] VITALS (13 sets, daily range): BP systolic 118–149; BP diastolic 52–68; PULSE 88–104; RESP 14–24; TEMP 97.8–101; O2SAT 88–97
[2024-07-11 06:56] LABS: BASOPHILS % (AUTO) 0.1 % (0-1); EOSINOPHILS % (AUTO) 0.1 % (0-6); HEMATOCRIT 30.7 % (35.0-45.0); HEMOGLOBIN 10.3 g/dl (12.0-16.0); LYMPHOCYTES # (AUTO) 0.5 X10'3 (1.1-4.8); LYMPHOCYTES % (AUTO) 5.1 % (21-51); MEAN CORPUSCULAR HEMOGLOBIN 30.8 PG (27.0-31.0); MEAN CORPUSCULAR HGB CONC 33.5 g/dL (33.0-36.5); MEAN PLATELET VOLUME 8.1 FL (7.4-10.4); MONOCYTES # (AUTO) 0.7 X10'3 (0-0.9); MONOCYTES % (AUTO) 7.4 % (2-12); NEUTROPHILS # (AUTO) 8.3 X10'3 (1.8-7.7); NEUTROPHILS % (AUTO) 87.3 % (42-75); PLATELET COUNT 156 X10'3 (140-440); RED BLOOD COUNT 3.34 X10'6 (4.20-5.60); RED CELL DISTRIBUTION WIDTH 14.3 % (11.5-14.5); WHITE BLOOD COUNT 9.5 X10'3 (4.5-11.0)
[2024-07-11 07:25] LABS: ALANINE AMINOTRANSFERASE 20 U/L (12-78); ALBUMIN 2.3 G/DL (3.4-5.0); ALBUMIN/GLOBULIN RATIO 0.7 (1.1-1.5); ALKALINE PHOSPHATASE 93 IU/L (46-116); ANION GAP 11 (8-16); ASPARTATE AMINO TRANSFERASE 25 U/L (10-37); BILIRUBIN,TOTAL 0.9 MG/DL (0.1-1.0); BLOOD UREA NITROGEN 7 MG/DL (7-18); BUN/CREATININE RATIO 12.3 (10.0-20.0); CALCIUM 8.4 MG/DL (8.5-10.1); CHLORIDE 105 MMOL/L (99-107); CREATININE 0.57 MG/DL (0.40-0.90); GLUCOSE 79 MG/DL (70-104); POTASSIUM 3.5 MMOL/L (3.5-5.1); SODIUM 140 MMOL/L (135-145); TOTAL PROTEIN 5.6 G/DL (6.4-8.2); eCRCL 105 ML/MIN; eGFR > 90 ML/MIN
[2024-07-11] MEDS: ipratropium/albuterol 3ml nebule NEB PRN (07:54)
--- NOTE | 2024-07-11 10:18 | PROGRESS NOTE- Residence ---
Progress Note - Resident Providers to CC Resident Creating Document: WINNIE COLLINS RES ~ Antibiotic Timeout Antibiotic Ordered?: No Subjective Patient was seen and examined at the bedside. Fortunately, she has not required any further narcan since last night, though she still experiencing severe alcohol withdrawal, with symptoms including severe agitation and hallucinations. She remains on the alcohol withdrawal protocol, receiving both fixed-scheduled and symptoms-triggered Ativan. Objective Vital Signs Date Time Temp Pulse Resp B/P (MAP) Pulse Ox O2 Delivery O2 Flow Rate FiO2 07/11/24 08:02 92 18 Nasal Cannula 4.0 07/11/24 07:54 88 32 07/11/24 02:00 99.0 149/68 (95) Result Diagram: 07/11/2461807/11/24618 Advance Care Planning Advanced Care plannin - 30 Minutes Assessment Assessment The patient presents with a likely opiate overdose. Here in the ED, she was somewhat sedated and slow to respond as well as diaphoretic. Initially it was unclear if this was actually an opiate overdose and so laboratory testing and a head CT were obtained. CT without intracranial hemorrhage or other acute abnormality. Labs are pending. She was given multiple doses of Narcan with good response. She will require further observation and possibly further Narcan or even admission if her symptoms do not improve. The patient was signed out at shift change, pending laboratory testing/urine drug screen and further observation. Plan Plan Fentanyl overdose/toxicity Substance use disorder/UDS positive for fentanyl and methamphetamine Recurrent episodes of drowsiness respiratory depression - responds well to Narcan Received repeated boluses of Narcan for recurrent respiratory depression Narcan infusion discontinued Perfusing well with 3 L supplemental oxygen via nasal cannula; keep oxygen saturation between 90- 94% Monitor closely for hypoventilation or need for airway intervention Continuous telemetry, monitor for arrhythmia, QTC prolongation Continue IV hydration Substance use navigation consult requested Alcohol use disorder: Severe alcohol withdrawal symptoms: CIWA-Ar Score 28 Symptom-triggered regimen for YANELIS - Ativan 2 mg IV as needed for CIWA-Ar >10 (parameters included in the order). Fixed-schedule regimen for YANELIS: Ativan 2 mg every 6 hours scheduled Transition to P.O: We will transition to Chlordiazepoxide 25 mg PO every 6 hours on day 1, every 8 hours on day 2, every12 hours on day 3, every 24 hours (at night) on days 4 and 5, then discontinue Continue thiamine and folic acid IV visitor services specialist consulted Mild Rhabdomyolysis: Evidenced by elevated CK and myoglobin, LDH and uric acid pending. No signs of acute kidney injury, but risk remains due to muscle breakdown products Etiology, fentanyl and methamphetamine IV hydration, goal of urine output >200-300 mL/hour. Monitor urine output Monitor renal function, BMP Jul 10 2024: This morning, noted to have respiratory depression with respiratory rate of only eight, and altered mental status suggestive of ongoing opioids effect. Responded promptly to 1 mg IV Narcan with improvement in mental status. However following Narcan administration, patient exhibited acute panic, severe agitation, hallucination, accompanied by paroxysmal sweats, consistent with s evere alcohol withdrawal. Initiated treatment using a combination of fixed- scheduled, and symptom-triggered benzodiazepine protocol per CIWA guidelines. Currently, she is being treated for both fentanyl overdose and severe alcohol withdrawal. I asked the nurse executive manager again today to involve the poison control. Mild rhabdomyolysis likely secondary to methamphetamine use, without current evidence of acute kidney injury. July 11, 2024: Disposition: This patient has a complex presentation. She was admitted following a fentanyl overdose in the context of known amphetamine use. She required multiple boluses of naloxone, followed by a continuous naloxone infusion, and additional PRN boluses. Fortunately, she has not required any further naloxone since last night. She is also experiencing severe alcohol withdrawal, with symptoms including severe agitation and hallucinations. She remains on the alcohol withdrawal protocol, receiving both fixed-scheduled and symptoms-triggered Ativan. Additionally, she had mild rhabdomyolysis, which is clinically improving with supportive care and adequate hydration. At this time, we will continue current management and plan to transition her to oral chlordiazepoxide one she is clinically more stable and beyond the higher risk withdrawal phase. Interval history today at 2:00 p.m.: Despite being on both symptom triggered and fixed scheduled Ativan, the patient continues to exhibit agitation and is difficult to redirect. After evaluating the patient and discussing with pharmacy, we will proceed with the following adjustment: - Valium 10 mg IV every 6 hours scheduled, transitioning to every 8 hours scheduled tomorrow - Continue symptom triggered Ativan per CIWA protocol - Administer Zyprexa 10 mg MS adjunctive therapy for agitation Tobacco use disorder: One pack/day for 30 years Nicotine patch Smoking cessation counseling provided COPD: Not in exacerbation Albuterol inhaler as needed Code status: Full code DVT prophylaxis: Lovenox 40 mg SQ daily Winnie Collins Internal Medicine Resident Date of Service: July 11, 2024 Billing Provider: DEV ORTEGA MD,WINNIE, RES July 11, 2024 10:18
[2024-07-11] MEDS: diazepam inj 5 MG/ML inj. IV SCH ×2 (13:54→23:26)
[2024-07-11] MEDS: haloperidol lactate 5mg/ml inj IM ONE ×2 (15:54→16:29)
[2024-07-11] MEDS: acetaminophen 1,000mg/100ml IV 100 ML IV ONE (16:22)
--- NOTE | 2024-07-11 16:26 | RADIOLOGY REPORT ---
CHEST RADIOGRAPH Indication: possible infection, fever, crackles Technique: Single frontal view of the chest was obtained COMPARISON: DI CHEST,SINGLE VIEW on DOS: 05/16/24, DI CHEST,SINGLE VIEW on DOS: 04/30/24, DI CHEST,SINGL E VIEW on DOS: 03/05/23 FINDINGS: Lines and Tubes: None Lungs: Multifocal airspace disease. Pleura: Small bilateral pleural effusions. No pneumothorax. Cardiomediastinal contours: Unremarkable Bones: Unremarkable IMPRESSION: Increased severe multifocal airspace disease and small bilateral pleural effusions. Findings may repr esent multifocal infection or pulmonary edema. Clinical correlation advised.
[2024-07-11] MEDS ORDERED: olanzapine 10mg tablet PO ONE (21:00)
[2024-07-11] MEDS: OLANZapine **IM** 10 mg inj. IM ONE (21:20)
[2024-07-11] MEDS: dextrose 5%-1/2 normal saline 1,000 ML IV ONE (22:32)
[2024-07-11] MEDS: dextrose 5%-normal saline 1,000 ML IV ONE (22:52)
[2024-07-12] VITALS (13 sets, daily range): BP systolic 122–146; BP diastolic 57–88; PULSE 74–98; RESP 15–40; TEMP 98.1–101.8; O2SAT 89–97
[2024-07-12] MEDS: acetaZOLAMIDE IV 500mg inj IV ONE (01:45)
[2024-07-12] MEDS: acetaminophen 1,000mg/100ml IV 100 ML IV ONE (02:16)
[2024-07-12] MEDS: diazepam inj 5 MG/ML inj. IV ONE (02:57)
[2024-07-12 08:12] LABS: BASOPHILS % (AUTO) 0.2 % (0-1); EOSINOPHILS % (AUTO) 0.4 % (0-6); HEMOGLOBIN 10.6 g/dl (12.0-16.0); LYMPHOCYTES # (AUTO) 0.7 X10'3 (1.1-4.8); LYMPHOCYTES % (AUTO) 9.2 % (21-51); MEAN CORPUSCULAR HEMOGLOBIN 30.8 PG (27.0-31.0); MEAN CORPUSCULAR HGB CONC 34.2 g/dL (33.0-36.5); MEAN CORPUSCULAR VOLUME 89.9 FL (78-98); MONOCYTES # (AUTO) 0.8 X10'3 (0-0.9); MONOCYTES % (AUTO) 10.7 % (2-12); NEUTROPHILS # (AUTO) 6.1 X10'3 (1.8-7.7); NEUTROPHILS % (AUTO) 79.5 % (42-75); PLATELET COUNT 182 X10'3 (140-440); RED BLOOD COUNT 3.45 X10'6 (4.20-5.60); RED CELL DISTRIBUTION WIDTH 13.9 % (11.5-14.5); WHITE BLOOD COUNT 7.6 X10'3 (4.5-11.0)
[2024-07-12 08:28] LABS: ALANINE AMINOTRANSFERASE 19 U/L (12-78); ALBUMIN 2.5 G/DL (3.4-5.0); ALBUMIN/GLOBULIN RATIO 0.7 (1.1-1.5); ALKALINE PHOSPHATASE 94 IU/L (46-116); ANION GAP 7 (8-16); ASPARTATE AMINO TRANSFERASE 34 U/L (10-37); BILIRUBIN,TOTAL 1.5 MG/DL (0.1-1.0); BLOOD UREA NITROGEN 4 MG/DL (7-18); BUN/CREATININE RATIO 5.6 (10.0-20.0); CALCIUM 8.2 MG/DL (8.5-10.1); CHLORIDE 105 MMOL/L (99-107); CREATININE 0.71 MG/DL (0.40-0.90); GLUCOSE 144 MG/DL (70-104); SODIUM 138 MMOL/L (135-145); TOTAL CARBON DIOXIDE 26.3 MMOL/L (24-32); TOTAL PROTEIN 5.9 G/DL (6.4-8.2); eCRCL 84 ML/MIN; eGFR 84 ML/MIN
[2024-07-12 08:35] LABS: POTASSIUM 2.7 MMOL/L (3.5-5.1)
[2024-07-12] MEDS: potassium Cl 40MEQ/1/2NS 520ml 520 ML IV PRN (11:18)
[2024-07-12] MEDS: haloperidol lactate 5mg/ml inj IM ONE (11:44)
--- NOTE | 2024-07-12 17:38 | PROGRESS NOTE- Residence ---
Progress Note - Resident Providers to CC Resident Creating Document: ANT BOSCH, AMY ~ Antibiotic Timeout Antibiotic Ordered?: No Subjective Patient was seen and examined at the bedside. According to the patient's family, patient is not a heavy alcoholic. They do not want her to get Ativan. Of the patient was more alert today, had about 25% of her meal. She also did not want to get any Ativan. Changed the medications Ativan and Valium to p.r.n.. Objective Vital Signs Date Time Temp Pulse Resp B/P (MAP) Pulse Ox O2 Delivery O2 Flow Rate FiO2 07/12/24 11:00 88 15 130/77 (94) 94 Nasal Cannula 3.0 07/12/24 07:40 32 07/12/24 07:16 98.1 Result Diagram: 07/12/24 0728 07/12/24 0735 General: Agitated in the morning, slightly more alert in the afternoon HEENT: Conjunctiva pink, Sclera clear, Mucus Membranes moist. Neck: Supple without masses and tenderness. Resp: Unlabored. Lungs clear to auscultation bilaterally. Heart: Regular Rate and rhythm, normal S1 and S2 without murmur, rub or gallop. Abdomen: Soft and non tender no organomegaly Extremities: No cyanosis,clubbing or edema. Skin: Warm and Dry. SOLAR INSTALLER: No focal neurological deficits Assessment Assessment The patient presents with a likely opiate overdose. Here in the ED, she was somewhat sedated and slow to respond as well as diaphoretic. Initially it was unclear if this was actually an opiate overdose and so laboratory testing and a head CT were obtained. CT without intracranial hemorrhage or other acute abnormality. Labs are pending. She was given multiple doses of Narcan with good response. She will require further observation and possibly further Narcan or even admission if her symptoms do not improve. The patient was signed out at shift change, pending laboratory testing/urine drug screen and further observation. Plan Plan Fentanyl overdose/toxicity Substance use disorder/UDS positive for fentanyl and methamphetamine Recurrent episodes of drowsiness respiratory depression - responds well to Narcan Received repeated boluses of Narcan for recurrent respiratory depression Narcan infusion discontinued Perfusing well with 3 L supplemental oxygen via nasal cannula; keep oxygen saturation between 90- 94% Monitor closely for hypoventilation or need for airway intervention Continuous telemetry, monitor for arrhythmia, QTC prolongation Continue IV hydration Substance use navigation consult requested Alcohol use disorder: Severe alcohol withdrawal symptoms: CIWA-Ar Score 28 Symptom-triggered regimen for YANELIS - Ativan 2 mg IV as needed for CIWA-Ar >10 (parameters included in the order). Valium and Ativan changed to p.r.n.. Continue thiamine and folic acid IV multimedia services coordinator consulted Mild Rhabdomyolysis: Evidenced by elevated CK and myoglobin, LDH elevated, uric acid normal. No signs of acute kidney injury, but risk remains due to muscle breakdown products Etiology, fentanyl and methamphetamine IV hydration, goal of urine output >200-300 mL/hour. Monitor urine output Monitor renal function, BMP Jul 10 2024: This morning, noted to have respiratory depression with respiratory rate of only eight, and altered mental status suggestive of ongoing opioids effect. Responded promptly to 1 mg IV Narcan with improvement in mental status. However following Narcan administration, patient exhibited acute panic, severe agitation, hallucination, accompanied by paroxysmal sweats, consistent with s evere alcohol withdrawal. Initiated treatment using a combination of fixed- scheduled, and symptom-triggered benzodiazepine protocol per CIWA guidelines. Currently, she is being treated for both fentanyl overdose and severe alcohol withdrawal. I asked the nurse restaurant and bar manager again today to involve the poison control. Mild rhabdomyolysis likely secondary to methamphetamine use, without current evidence of acute kidney injury. July 11, 2024: This patient has a complex presentation. She was admitted following a fentanyl overdose in the context of known amphetamine use. She required multiple boluses of naloxone, followed by a continuous naloxone infusion, and additional PRN boluses. Fortunately, she has not required any further naloxone since last night. She is also experiencing severe alcohol withdrawal, with symptoms including severe agitation and hallucinations. She remains on the alcohol withdrawal protocol, receiving both fixed-scheduled and symptoms-triggered Ativan. Additionally, she had mild rhabdomyolysis, which is clinically improving with supportive care and adequate hydration. At this time, we will continue current management and plan to transition her to oral chlordiazepoxide one she is clinically more stable and beyond the higher risk withdrawal phase. Interval history today at 2:00 p.m.: Despite being on both symptom triggered and fixed scheduled Ativan, the patient continues to exhibit agitation and is difficult to redirect. After evaluating the patient and discussing with pharmacy, we will proceed with the following adjustment: - Valium 10 mg IV every 6 hours scheduled, transitioning to every 8 hours scheduled tomorrow - Continue symptom triggered Ativan per [facility] protocol - Administer Zyprexa 10 mg MS adjunctive therapy for agitation July 12 Patient is more alert, had about 25% of her meal Patient and patient's family does not want Ativan. Changed Ativan and Valium to p.r.n. Tobacco use disorder: One pack/day for 30 years Nicotine patch Smoking cessation counseling provided COPD: Not in exacerbation Albuterol inhaler as needed Code status: Full code DVT prophylaxis: Lovenox 40 mg SQ daily Ant Bosch M.D PGY1 Date of Service: July 12, 2024 Billing Provider: DEV ORTEGA MD, PRAVAHIKA, RES July 12, 2024 17:38
[2024-07-12] MEDS ORDERED: NUT.TX.IMPAIRED DIGEST FXN (Ensure Clear) 237 ML PO SCH (18:00)
[2024-07-12] MEDS: lactose-reduced food (Ensure Enlive) - 237ml bottle PO SCH (18:00)
[2024-07-13] VITALS (9 sets, daily range): BP systolic 124–146; BP diastolic 68–73; PULSE 72–95; RESP 17–24; TEMP 97.9–98.3; O2SAT 92–97
[2024-07-13 06:54] LABS: BASOPHILS % (AUTO) 0.1 % (0-1); EOSINOPHILS # (AUTO) 0.1 X10'3 (0-0.9); EOSINOPHILS % (AUTO) 0.9 % (0-6); HEMATOCRIT 33.5 % (35.0-45.0); HEMOGLOBIN 11.4 g/dl (12.0-16.0); LYMPHOCYTES # (AUTO) 0.8 X10'3 (1.1-4.8); LYMPHOCYTES % (AUTO) 12.2 % (21-51); MEAN CORPUSCULAR HEMOGLOBIN 30.5 PG (27.0-31.0); MEAN CORPUSCULAR HGB CONC 34.1 g/dL (33.0-36.5); MEAN CORPUSCULAR VOLUME 89.6 FL (78-98); MEAN PLATELET VOLUME 7.7 FL (7.4-10.4); MONOCYTES # (AUTO) 0.8 X10'3 (0-0.9); MONOCYTES % (AUTO) 12.2 % (2-12); NEUTROPHILS % (AUTO) 74.6 % (42-75); PLATELET COUNT 221 X10'3 (140-440); RED BLOOD COUNT 3.74 X10'6 (4.20-5.60); RED CELL DISTRIBUTION WIDTH 13.7 % (11.5-14.5); WHITE BLOOD COUNT 6.7 X10'3 (4.5-11.0)
[2024-07-13 07:09] LABS: ALANINE AMINOTRANSFERASE 24 U/L (12-78); ALBUMIN 2.4 G/DL (3.4-5.0); ALBUMIN/GLOBULIN RATIO 0.7 (1.1-1.5); ALKALINE PHOSPHATASE 94 IU/L (46-116); ANION GAP 10 (8-16); ASPARTATE AMINO TRANSFERASE 35 U/L (10-37); BILIRUBIN,TOTAL 1.3 MG/DL (0.1-1.0); BLOOD UREA NITROGEN 3 MG/DL (7-18); BUN/CREATININE RATIO 6.3 (10.0-20.0); CALCIUM 8.6 MG/DL (8.5-10.1); CHLORIDE 106 MMOL/L (99-107); CREATININE 0.48 MG/DL (0.40-0.90); GLUCOSE 110 MG/DL (70-104); SODIUM 140 MMOL/L (135-145); TOTAL CARBON DIOXIDE 23.7 MMOL/L (24-32); TOTAL PROTEIN 5.8 G/DL (6.4-8.2); eCRCL 124 ML/MIN; eGFR > 90 ML/MIN
[2024-07-13 07:14] LABS: POTASSIUM 2.7 MMOL/L (3.5-5.1)
[2024-07-13] MEDS: potassium Cl 20 mEq SR tablet PO PRN ×2 (07:21→22:35)
[2024-07-13] MEDS: folic acid 1mg tablet PO SCH (07:22)
[2024-07-13] MEDS: thiamine 100mg tablet PO SCH (07:22)
[2024-07-13] MEDS: diazepam inj 5 MG/ML inj. IV PRN (16:25)
--- NOTE | 2024-07-13 16:57 | PROGRESS NOTE- Residence ---
Progress Note - Resident Providers to CC Resident Creating Document: WINNIE COLLINS RES ~ Antibiotic Timeout Antibiotic Ordered?: No Subjective Patient was seen and examined at the bedside. Relatively more alert today, consumed breakfast this morning. Soft restraints are off. Objective Vital Signs Date Time Temp Pulse Resp B/P (MAP) Pulse Ox O2 Delivery O2 Flow Rate FiO2 07/13/24 08:00 17 95 Nasal Cannula 3.0 07/13/24 06:53 98.1 88 146/71 (96) 07/12/24 19:40 32 General: Fluctuated mentation, HEENT: Conjunctiva pink, Sclera clear, Mucus Membranes moist. Neck: Supple without masses and tenderness. Resp: Unlabored. Lungs clear to auscultation bilaterally. Heart: Regular Rate and rhythm, normal S1 and S2 without murmur, rub or gallop. Abdomen: Soft and non tender no organomegaly Extremities: No cyanosis,clubbing or edema. Skin: Warm and Dry. HORSE RACETRACK MANAGER: No focal neurological deficits Result Diagram: 07/13/2463207/13/24632 Advance Care Planning Advanced Care plannin - 30 Minutes Assessment Assessment The patient presents with a likely opiate overdose. Here in the ED, she was somewhat sedated and slow to respond as well as diaphoretic. Initially it was unclear if this was actually an opiate overdose and so laboratory testing and a head CT were obtained. CT without intracranial hemorrhage or other acute abnormality. Labs are pending. She was given multiple doses of Narcan with good response. She will require further observation and possibly further Narcan or even admission if her symptoms do not improve. The patient was signed out at shift change, pending laboratory testing/urine drug screen and further observation. Plan Plan Fentanyl overdose/toxicity Substance use disorder/UDS positive for fentanyl and methamphetamine Recurrent episodes of drowsiness respiratory depression - responds well to Narcan Received repeated boluses of Narcan for recurrent respiratory depression Narcan infusion discontinued Perfusing well with 3 L supplemental oxygen via nasal cannula; keep oxygen saturation between 90- 94% Monitor closely for hypoventilation or need for airway intervention Continuous telemetry, monitor for arrhythmia, QTC prolongation Continue IV hydration Substance use navigation consult requested Alcohol use disorder: Severe alcohol withdrawal symptoms: CIWA-Ar Score 28 Symptom-triggered regimen for YANELIS - Ativan 2 mg IV as needed for CIWA-Ar >10 (parameters included in the order). Valium and Ativan changed to p.r.n.. Continue thiamine and folic acid IV agricultural services director consulted Mild Rhabdomyolysis: Resolved Evidenced by elevated CK and myoglobin, LDH elevated, uric acid normal. No signs of acute kidney injury, but risk remains due to muscle breakdown products Etiology, fentanyl and methamphetamine IV hydration, goal of urine output >200-300 mL/hour. Monitor urine output Monitor renal function, BMP Jul 10 2024: This morning, noted to have respiratory depression with respiratory rate of only eight, and altered mental status suggestive of ongoing opioids effect. Responded promptly to 1 mg IV Narcan with improvement in mental status. However following Narcan administration, patient exhibited acute panic, severe agitation, hallucination, accompanied by paroxysmal sweats, consistent with s evere alcohol withdrawal. Initiated treatment using a combination of fixed- scheduled, and symptom-triggered benzodiazepine protocol per CIWA guidelines. Currently, she is being treated for both fentanyl overdose and severe alcohol withdrawal. I asked the nurse shellfish manager again today to involve the poison control. Mild rhabdomyolysis likely secondary to methamphetamine use, without current evidence of acute kidney injury. July 11, 2024: This patient has a complex presentation. She was admitted following a fentanyl overdose in the context of known amphetamine use. She required multiple boluses of naloxone, followed by a continuous naloxone infusion, and additional PRN boluses. Fortunately, she has not required any further naloxone since last night. She is also experiencing severe alcohol withdrawal, with symptoms including severe agitation and hallucinations. She remains on the alcohol withdrawal protocol, receiving both fixed-scheduled and symptoms-triggered Ativan. Additionally, she had mild rhabdomyolysis, which is clinically improving with supportive care and adequate hydration. At this time, we will continue current management and plan to transition her to oral chlordiazepoxide one she is clinically more stable and beyond the higher risk withdrawal phase. Interval history today at 2:00 p.m.: Despite being on both symptom triggered and fixed scheduled Ativan, the patient continues to exhibit agitation and is difficult to redirect. After evaluating the patient and discussing with pharmacy, we will proceed with the following adjustment: - Valium 10 mg IV every 6 hours scheduled, transitioning to every 8 hours scheduled tomorrow - Continue symptom triggered Ativan per CIWA protocol - Administer Zyprexa 10 mg MS adjunctive therapy for agitation July 12, 2024: Patient is more alert, had about 25% of her meal Patient and patient's family does not want Ativan. Changed Ativan and Valium to p.r.n. July 13, 2024: Fluctuated mentation, relatively alert and awake today. Consumed her breakfast Continue current medical management. We will re-evaluate tomorrow Tobacco use disorder: One pack/day for 30 years Nicotine patch Smoking cessation counseling provided COPD: Not in exacerbation Albuterol inhaler as needed Code status: Full code DVT prophylaxis: Lovenox 40 mg SQ daily Winnie Collins Internal Medicine Resident Date of Service: July 13, 2024 Billing Provider: DEV ORTEGA MD,WINNIE, RES July 13, 2024 16:57
[2024-07-13] MEDS: haloperidol lactate 5mg/ml inj IM ONE (22:20)
[2024-07-14] VITALS (8 sets, daily range): BP systolic 116–128; BP diastolic 59–76; PULSE 66–107; RESP 14–24; TEMP 97.2–98.4; O2SAT 92–95
[2024-07-14 12:46] LABS: BASOPHILS % (AUTO) 0.6 % (0-1); EOSINOPHILS # (AUTO) 0.1 X10'3 (0-0.9); EOSINOPHILS % (AUTO) 1.9 % (0-6); HEMATOCRIT 35.2 % (35.0-45.0); LYMPHOCYTES % (AUTO) 13.3 % (21-51); MEAN CORPUSCULAR HEMOGLOBIN 30.4 PG (27.0-31.0); MEAN CORPUSCULAR VOLUME 89.5 FL (78-98); MEAN PLATELET VOLUME 8.4 FL (7.4-10.4); MONOCYTES # (AUTO) 0.9 X10'3 (0-0.9); MONOCYTES % (AUTO) 12.1 % (2-12); NEUTROPHILS # (AUTO) 5.4 X10'3 (1.8-7.7); NEUTROPHILS % (AUTO) 72.1 % (42-75); PLATELET COUNT 284 X10'3 (140-440); RED BLOOD COUNT 3.93 X10'6 (4.20-5.60); RED CELL DISTRIBUTION WIDTH 14.1 % (11.5-14.5); WHITE BLOOD COUNT 7.5 X10'3 (4.5-11.0)
[2024-07-14 13:05] LABS: ALANINE AMINOTRANSFERASE 26 U/L (12-78); ALBUMIN 2.6 G/DL (3.4-5.0); ALKALINE PHOSPHATASE 90 IU/L (46-116); ANION GAP 8 (8-16); ASPARTATE AMINO TRANSFERASE 28 U/L (10-37); BILIRUBIN,TOTAL 0.7 MG/DL (0.1-1.0); BLOOD UREA NITROGEN 7 MG/DL (7-18); BUN/CREATININE RATIO 9.3 (10.0-20.0); CALCIUM 8.9 MG/DL (8.5-10.1); CHLORIDE 107 MMOL/L (99-107); CREATININE 0.75 MG/DL (0.40-0.90); GLUCOSE 108 MG/DL (70-104); POTASSIUM 3.6 MMOL/L (3.5-5.1); SODIUM 140 MMOL/L (135-145); TOTAL CARBON DIOXIDE 25.5 MMOL/L (24-32); eCRCL 79 ML/MIN; eGFR 79 ML/MIN
[2024-07-14 13:09] LABS: ALBUMIN/GLOBULIN RATIO 0.7 (1.1-1.5); TOTAL PROTEIN 6.4 G/DL (6.4-8.2)
[2024-07-14] MEDS: chlordiazePOXIDE 25mg capsule PO SCH (13:33)
--- NOTE | 2024-07-14 15:53 | PROGRESS NOTE- Residence ---
Progress Note - Resident Providers to CC Resident Creating Document: YANIRA COLLINS RES ~ Antibiotic Timeout Antibiotic Ordered?: No Subjective Patient was seen and examined while she was sitting at the chair beside her bed.. The patient is in the process of separation with resolution of severe alcohol withdrawal. Agitation has significantly improved, in restraints are no longer required, at least this time. Patient has not needed IV diazepam for the past 20 hours. IV benzodiazepine have been discontinued, and Librium 25 mg every 6 hours for today, has been initiated. The patient has been downgraded to the surgical floor. Mendoza catheter removed. Able to tolerate oral intake. Objective Vital Signs Date Time Temp Pulse Resp B/P (MAP) Pulse Ox O2 Delivery O2 Flow Rate FiO2 07/14/24 15:00 97.2 107 24 118/59 (78) 92 Room Air 07/14/24 08:00 3.0 07/13/24 19:43 32 General: Fluctuated mentation, HEENT: Conjunctiva pink, Sclera clear, Mucus Membranes moist. Neck: Supple without masses and tenderness. Resp: Unlabored. Lungs clear to auscultation bilaterally. Heart: Regular Rate and rhythm, normal S1 and S2 without murmur, rub or gallop. Abdomen: Soft and non tender no organomegaly Extremities: No cyanosis,clubbing or edema. Skin: Warm and Dry. MACHINES TECHNICIAN: No focal neurological deficits Result Diagram: 07/14/24 1048 07/14/24 1048 Assessment Assessment The patient presents with a likely opiate overdose. Here in the ED, she was somewhat sedated and slow to respond as well as diaphoretic. Initially it was unclear if this was actually an opiate overdose and so laboratory testing and a head CT were obtained. CT without intracranial hemorrhage or other acute abnormality. Labs are pending. She was given multiple doses of Narcan with good response. She will require further observation and possibly further Narcan or even admission if her symptoms do not improve. The patient was signed out at shift change, pending laboratory testing/urine drug screen and further observation. Plan Plan Fentanyl overdose/toxicity Substance use disorder/UDS positive for fentanyl and methamphetamine Recurrent episodes of drowsiness respiratory depression - responds well to Narcan Received repeated boluses of Narcan for recurrent respiratory depression Narcan infusion discontinued Perfusing well with 3 L supplemental oxygen via nasal cannula; keep oxygen saturation between 90- 94% Monitor closely for hypoventilation or need for airway intervention Continuous telemetry, monitor for arrhythmia, QTC prolongation Continue IV hydration Substance use navigation consult requested Alcohol use disorder: Severe alcohol withdrawal symptoms: CIWA-Ar Score 28 Symptom-triggered regimen for YANELIS - Ativan 2 mg IV as needed for CIWA-Ar >10 (parameters included in the order). Valium and Ativan changed to p.r.n.. Continue thiamine and folic acid IV non emergency services ambulance driver consulted Mild Rhabdomyolysis: Resolved Evidenced by elevated CK and myoglobin, LDH elevated, uric acid normal. No signs of acute kidney injury, but risk remains due to muscle breakdown products Etiology, fentanyl and methamphetamine IV hydration, goal of urine output >200-300 mL/hour. Monitor urine output Monitor renal function, BMP Jul 10 2024: This morning, noted to have respiratory depression with respiratory rate of only eight, and altered mental status suggestive of ongoing opioids effect. Responded promptly to 1 mg IV Narcan with improvement in mental status. However following Narcan administration, patient exhibited acute panic, severe agitation, hallucination, accompanied by paroxysmal sweats, consistent with s evere alcohol withdrawal. Initiated treatment using a combination of fixed- scheduled, and symptom-triggered benzodiazepine protocol per CIWA guidelines. Currently, she is being treated for both fentanyl overdose and severe alcohol withdrawal. I asked the nurse engineering group manager again today to involve the poison control. Mild rhabdomyolysis likely secondary to methamphetamine use, without current evidence of acute kidney injury. July 11, 2024: This patient has a complex presentation. She was admitted following a fentanyl overdose in the context of known amphetamine use. She required multiple boluses of naloxone, followed by a continuous naloxone infusion, and additional PRN boluses. Fortunately, she has not required any further naloxone since last night. She is also experiencing severe alcohol withdrawal, with symptoms including severe agitation and hallucinations. She remains on the alcohol withdrawal protocol, receiving both fixed-scheduled and symptoms-triggered Ativan. Additionally, she had mild rhabdomyolysis, which is clinically improving with supportive care and adequate hydration. At this time, we will continue current management and plan to transition her to oral chlordiazepoxide one she is clinically more stable and beyond the higher risk withdrawal phase. Interval history today at 2:00 p.m.: Despite being on both symptom triggered and fixed scheduled Ativan, the patient continues to exhibit agitation and is difficult to redirect. After evaluating the patient and discussing with pharmacy, we will proceed with the following adjustment: - Valium 10 mg IV every 6 hours scheduled, transitioning to every 8 hours scheduled tomorrow - Continue symptom triggered Ativan per [facility] protocol - Administer Zyprexa 10 mg MS adjunctive therapy for agitation July 12, 2024: Patient is more alert, had about 25% of her meal Patient and patient's family does not want Ativan. Changed Ativan and Valium to p.r.n. July 13, 2024: Fluctuated mentation, relatively alert and awake today. Consumed her breakfast Continue current medical management. We will re-evaluate tomorrow July 14, 2024: he patient is in the process of separation with resolution of severe alcohol withdrawal. Agitation has significantly improved, in restraints are no longer required, at least this time. Patient has not needed IV diazepam for the past 20 hours. IV benzodiazepine have been discontinued, and Librium p.o. 25 mg every 6 hours for today, has been initiated. The patient has been downgraded to the surgical floor. Mendoza catheter removed. Able to tolerate oral intake. Tobacco use disorder: One pack/day for 30 years Nicotine patch Smoking cessation counseling provided COPD: Not in exacerbation Albuterol inhaler as needed Code status: Full code DVT prophylaxis: Lovenox 40 mg SQ daily Disposition: We will re-evaluate her tomorrow, we will be discharged home with oral Librium for three days if remains stable. Yanira Collins Internal Medicine Resident Date of Service: July 14, 2024 Billing Provider: DEV ORTEGA MD, SHAMS, AMY July 14, 2024 15:52
[2024-07-14] MEDS: nicotine 21mg patch - 24 hr TD SCH (16:32)
[2024-07-15] VITALS (11 sets, daily range): BP systolic 101–126; BP diastolic 48–75; PULSE 74–100; RESP 17–22; TEMP 97.4–98.1; O2SAT 92–97
[2024-07-15 09:27] LABS: BASOPHILS % (AUTO) 0.3 % (0-1); EOSINOPHILS # (AUTO) 0.1 X10'3 (0-0.9); HEMATOCRIT 34.2 % (35.0-45.0); HEMOGLOBIN 11.6 g/dl (12.0-16.0); LYMPHOCYTES % (AUTO) 14.1 % (21-51); MEAN CORPUSCULAR HEMOGLOBIN 30.2 PG (27.0-31.0); MEAN CORPUSCULAR HGB CONC 33.8 g/dL (33.0-36.5); MEAN CORPUSCULAR VOLUME 89.3 FL (78-98); MEAN PLATELET VOLUME 8.3 FL (7.4-10.4); MONOCYTES # (AUTO) 0.8 X10'3 (0-0.9); MONOCYTES % (AUTO) 11.9 % (2-12); NEUTROPHILS # (AUTO) 4.9 X10'3 (1.8-7.7); NEUTROPHILS % (AUTO) 71.7 % (42-75); PLATELET COUNT 253 X10'3 (140-440); RED BLOOD COUNT 3.83 X10'6 (4.20-5.60); RED CELL DISTRIBUTION WIDTH 14.2 % (11.5-14.5); WHITE BLOOD COUNT 6.8 X10'3 (4.5-11.0)
[2024-07-15 09:57] LABS: ALANINE AMINOTRANSFERASE 27 U/L (12-78); ALBUMIN 2.7 G/DL (3.4-5.0); ALBUMIN/GLOBULIN RATIO 0.7 (1.1-1.5); ALKALINE PHOSPHATASE 87 IU/L (46-116); ASPARTATE AMINO TRANSFERASE 22 U/L (10-37); BILIRUBIN,TOTAL 0.6 MG/DL (0.1-1.0); BLOOD UREA NITROGEN 5 MG/DL (7-18); BUN/CREATININE RATIO 8.1 (10.0-20.0); CHLORIDE 106 MMOL/L (99-107); CREATININE 0.62 MG/DL (0.40-0.90); GLUCOSE 123 MG/DL (70-104); MAGNESIUM 1.6 MG/DL (1.5-2.4); PHOSPHORUS 2.5 MG/DL (2.3-4.5); TOTAL CARBON DIOXIDE 24.5 MMOL/L (24-32); TOTAL PROTEIN 6.8 G/DL (6.4-8.2); eCRCL 96 ML/MIN; eGFR > 90 ML/MIN
[2024-07-15 09:59] LABS: ANION GAP 10 (8-16); POTASSIUM 3.5 MMOL/L (3.5-5.1); SODIUM 140 MMOL/L (135-145)
[2024-07-15] MEDS: chlordiazePOXIDE 25mg capsule PO ONE (13:03)
[2024-07-15] MEDS: chlordiazePOXIDE 25mg capsule PO SCH (16:00)
--- NOTE | 2024-07-15 19:18 | PROGRESS NOTE- Residence ---
Progress Note - Resident Providers to CC Resident Creating Document: YANIRA COLLINS RES ~ Antibiotic Timeout Antibiotic Ordered?: No Subjective The patient is admitted with fentanyl overdose, methamphetamine use, and severe alcohol withdrawal. She has shown significant clinical improvement over the past 24 hours. She is now alert and oriented, able to walk, talk, and eat without difficulty. Her confusion has resolved. Early this morning, the patient expressed a desire to leave against medical advice. After a thorough discussion of the risks associated early discharge, she agreed to remain hospitalized. She will be monitored overnight, and her condition will be reassessed tomorrow morning for further disposition planning Objective Vital Signs Date Time Temp Pulse Resp B/P (MAP) Pulse Ox O2 Delivery O2 Flow Rate FiO2 07/15/24 15:00 98.1 92 20 113/62 (79) 96 Room Air 07/15/24 07:50 0 21 General: Fluctuated mentation, HEENT: Conjunctiva pink, Sclera clear, Mucus Membranes moist. Neck: Supple without masses and tenderness. Resp: Unlabored. Lungs clear to auscultation bilaterally. Heart: Regular Rate and rhythm, normal S1 and S2 without murmur, rub or gallop. Abdomen: Soft and non tender no organomegaly Extremities: No cyanosis,clubbing or edema. Skin: Warm and Dry. DISTRICT SALES COORDINATOR: No focal neurological deficits Result Diagram: 07/15/2458 07/15/24857 Advance Care Planning Advanced Care plannin - 30 Minutes Assessment Assessment The patient presents with a likely opiate overdose. Here in the ED, she was somewhat sedated and slow to respond as well as diaphoretic. Initially it was unclear if this was actually an opiate overdose and so laboratory testing and a head CT were obtained. CT without intracranial hemorrhage or other acute abnormality. Labs are pending. She was given multiple doses of Narcan with good response. She will require further observation and possibly further Narcan or even admission if her symptoms do not improve. The patient was signed out at shift change, pending laboratory testing/urine drug screen and further observation. Plan Plan Fentanyl overdose/toxicity Substance use disorder/UDS positive for fentanyl and methamphetamine Recurrent episodes of drowsiness respiratory depression - responds well to Narcan Received repeated boluses of Narcan for recurrent respiratory depression Narcan infusion discontinued Perfusing well with 3 L supplemental oxygen via nasal cannula; keep oxygen saturation between 90- 94% Monitor closely for hypoventilation or need for airway intervention Continuous telemetry, monitor for arrhythmia, QTC prolongation Continue IV hydration Substance use navigation consult requested Alcohol use disorder: Severe alcohol withdrawal symptoms: CIWA-Ar Score 28 Symptom-triggered regimen for YANELIS - Ativan 2 mg IV as needed for CIWA-Ar >10 (parameters included in the order). Valium and Ativan changed to p.r.n.. Continue thiamine and folic acid IV manager financial services consulted Mild Rhabdomyolysis: Resolved Evidenced by elevated CK and myoglobin, LDH elevated, uric acid normal. No signs of acute kidney injury, but risk remains due to muscle breakdown products Etiology, fentanyl and methamphetamine IV hydration, goal of urine output >200-300 mL/hour. Monitor urine output Monitor renal function, BMP Jul 10 2024: This morning, noted to have respiratory depression with respiratory rate of only eight, and altered mental status suggestive of ongoing opioids effect. Responded promptly to 1 mg IV Narcan with improvement in mental status. However following Narcan administration, patient exhibited acute panic, severe agitation, hallucination, accompanied by paroxysmal sweats, consistent with s evere alcohol withdrawal. Initiated treatment using a combination of fixed- scheduled, and symptom-triggered benzodiazepine protocol per CIWA guidelines. Currently, she is being treated for both fentanyl overdose and severe alcohol withdrawal. I asked the nurse quality system manager again today to involve the poison control. Mild rhabdomyolysis likely secondary to methamphetamine use, without current evidence of acute kidney injury. July 11, 2024: This patient has a complex presentation. She was admitted following a fentanyl overdose in the context of known amphetamine use. She required multiple boluses of naloxone, followed by a continuous naloxone infusion, and additional PRN boluses. Fortunately, she has not required any further naloxone since last night. She is also experiencing severe alcohol withdrawal, with symptoms including severe agitation and hallucinations. She remains on the alcohol withdrawal protocol, receiving both fixed-scheduled and symptoms-triggered Ativan. Additionally, she had mild rhabdomyolysis, which is clinically improving with supportive care and adequate hydration. At this time, we will continue current management and plan to transition her to oral chlordiazepoxide one she is clinically more stable and beyond the higher risk withdrawal phase. Interval history today at 2:00 p.m.: Despite being on both symptom triggered and fixed scheduled Ativan, the patient continues to exhibit agitation and is difficult to redirect. After evaluating the patient and discussing with pharmacy, we will proceed with the following adjustment: - Valium 10 mg IV every 6 hours scheduled, transitioning to every 8 hours scheduled tomorrow - Continue symptom triggered Ativan per [facility] protocol - Administer Zyprexa 10 mg MS adjunctive therapy for agitation July 12, 2024: Patient is more alert, had about 25% of her meal Patient and patient's family does not want Ativan. Changed Ativan and Valium to p.r.n. July 13, 2024: Fluctuated mentation, relatively alert and awake today. Consumed her breakfast Continue current medical management. We will re-evaluate tomorrow July 14, 2024: he patient is in the process of separation with resolution of severe alcohol withdrawal. Agitation has significantly improved, in restraints are no longer required, at least this time. Patient has not needed IV diazepam for the past 20 hours. IV benzodiazepine have been discontinued, and Librium p.o. 25 mg every 6 hours for today, has been initiated. The patient has been downgraded to the surgical floor. Mendoza catheter removed. Able to tolerate oral intake. July 15, 2024: She has shown significant clinical improvement over the past 24 hours. She is now alert and oriented, able to walk, talk, and eat without difficulty. Her confusion has resolved. Early this morning, the patient expressed a desire to leave against medical advice. After a thorough discussion of the risks associated early discharge, she agreed to remain hospitalized. She will be monitored overnight, and her condition will be reassessed tomorrow morning for further disposition planning Tobacco use disorder: One pack/day for 30 years Nicotine patch Smoking cessation counseling provided COPD: Not in exacerbation Albuterol inhaler as needed Code status: Full code DVT prophylaxis: Lovenox 40 mg SQ daily Disposition: We will re-evaluate her tomorrow, we will be discharged home with oral Librium for three days if remains stable. Yanira Collins Internal Medicine Resident Date of Service: July 15, 2024 Billing Provider: DEV ORTEGA MD,YANIRA, AMY July 15, 2024 19:18
[2024-07-15] MEDS: Melatonin 3mg tablet PO SCH (21:13)
[2024-07-16 06:30] VITALS: BP 110/69; PULSE 76; RESP 20; TEMP 97.5; O2SAT 95
[2024-07-16 07:58] VITALS: PULSE 86; RESP 18; O2SAT 95
[2024-07-16 10:00] VITALS: BP 110/63; PULSE 91; RESP 17; TEMP 98.5; O2SAT 96
[2024-07-16 12:29] LABS: BASOPHILS % (AUTO) 0.8 % (0-1); EOSINOPHILS # (AUTO) 0.2 X10'3 (0-0.9); EOSINOPHILS % (AUTO) 3.5 % (0-6); HEMATOCRIT 36.8 % (35.0-45.0); HEMOGLOBIN 12.2 g/dl (12.0-16.0); LYMPHOCYTES % (AUTO) 19.1 % (21-51); MEAN CORPUSCULAR HEMOGLOBIN 29.6 PG (27.0-31.0); MEAN CORPUSCULAR HGB CONC 33.2 g/dL (33.0-36.5); MEAN PLATELET VOLUME 7.5 FL (7.4-10.4); MONOCYTES # (AUTO) 0.7 X10'3 (0-0.9); MONOCYTES % (AUTO) 12.8 % (2-12); NEUTROPHILS # (AUTO) 3.3 X10'3 (1.8-7.7); NEUTROPHILS % (AUTO) 63.8 % (42-75); PLATELET COUNT 362 X10'3 (140-440); RED BLOOD COUNT 4.14 X10'6 (4.20-5.60); RED CELL DISTRIBUTION WIDTH 14.3 % (11.5-14.5); WHITE BLOOD COUNT 5.2 X10'3 (4.5-11.0)
[2024-07-16 12:42] LABS: ALANINE AMINOTRANSFERASE 31 U/L (12-78); ALBUMIN 2.8 G/DL (3.4-5.0); ALBUMIN/GLOBULIN RATIO 0.6 (1.1-1.5); ALKALINE PHOSPHATASE 90 IU/L (46-116); ANION GAP 10 (8-16); ASPARTATE AMINO TRANSFERASE 26 U/L (10-37); BILIRUBIN,TOTAL 0.4 MG/DL (0.1-1.0); BLOOD UREA NITROGEN 10 MG/DL (7-18); BUN/CREATININE RATIO 13.9 (10.0-20.0); CALCIUM 9.2 MG/DL (8.5-10.1); CHLORIDE 106 MMOL/L (99-107); CREATININE 0.72 MG/DL (0.40-0.90); GLUCOSE 123 MG/DL (70-104); MAGNESIUM 1.9 MG/DL (1.5-2.4); PHOSPHORUS 3.7 MG/DL (2.3-4.5); POTASSIUM 3.6 MMOL/L (3.5-5.1); SODIUM 142 MMOL/L (135-145); TOTAL CARBON DIOXIDE 26.3 MMOL/L (24-32); TOTAL PROTEIN 7.2 G/DL (6.4-8.2); eCRCL 83 ML/MIN; eGFR 82 ML/MIN
[2024-07-16] MEDS ORDERED: thiamine tablet PO (12:47)
[2024-07-16] MEDS ORDERED: FOLI1TAB27 PO (12:47)
[2024-07-16] MEDS ORDERED: CHLO25CA10 PO (12:47)
--- NOTE | 2024-07-16 15:38 | DISCHARGE SUMMARY-Residence ---
Discharge Summary Providers to CC Resident Creating Document: WINNIE ESPINOSAAMY ~ Discharge Summary Admission Diagnosis: Opioid intoxication Hospital Course DATE OF ADMISSION: July 08, 2024 DATE OF DISCHARGE: July 16, 2024 Discharge Diagnosis\Comment: Fentanyl overdose/toxicity Substance use disorder/UDS positive for fentanyl and methamphetamine Alcohol use disorder: Severe alcohol withdrawal symptoms Mild Rhabdomyolysis: Resolved Tobacco use disorder COPD: Not in exacerbation Operations\Procedures: none Consultants: none Complications: none Condition on DC: Stable New Medications: Chlordiazepoxide HCl (Chlordiazepoxide HCl) 25 Mg Capsule 25 MG PO Q12H for 2 Days, #4 CAP Take one capsule twice daily for today then, One capsule daily for two more days Folic Acid* (Folic Acid*) Y Tab 1 MG PO DAILY for 30 Days, #30 TAB [thiamine tablet] () 100 MG TABLET 100 MG PO DAILY for 30 Days, #30 Discharge Summary: The patient was found unconscious on the street and [facility]. Initial urine drug screen was negative, but given clinical suspicion, empiric naloxone was administered with positive response, confirming suspected opioid overdose. The patient required multiple doses of naloxone, followed by a naloxone infusion and subsequent intermittent bolus doses due to recurrent episode of respiratory depression. Follow up expanded urine drug s creen later returned positive for fentanyl and methamphetamine, after initial stabilization from the fentanyl overdose, the patient developed symptoms consistent with severe alcohol withdrawal, including agitation, hallucination, and autonomic instability. She was managed with symptoms triggered benzodiazepines, later transition to a fixed taper using Librium. The patient conditions gradually improved. She became alert, oriented, able to ambulate, and resume normal eating and communication. Although she initially requested to leave against medical advice, she agreed to remain hospitalized after counseling. She was ultimately deemed medically stable for discharge. Discharge course: Patient was referred to substance use counseling/rehab, evaluated by substance use navigator, provided her with written instruction how to follow up as outpatient. She is stable, alert and oriented. Ambulating independently. No withdrawal symptoms at time of discharge. She was discharged with the following instructions: Return to ER or call 911 if you experience difficulty breathing, chest pain, confusion, or unresponsiveness, severe tremor, hallucination, or worsening withdrawal symptoms. You have been referred to rehab program for substance use recovery and provided with written instructions, Please follow with them accordingly. Follow up with your primary care doctor in one week-repeat CBC and CMP in one week. Avoid alcohol, cigarettes, fentanyl, and other illicit drugs. Do not drive or operate heavy machinery while on sedated medications. Keep a safe environment- remove excess to substance in valve supportive family or friends. National substance use he will plan is one [phone], seek help if you needed Discharge physical exam: Vital Signs Date Time Temp Pulse Resp B/P (MAP) Pulse Ox O2 Delivery O2 Flow Rate FiO2 07/16/24 07:58 86 18 95 Room Air* 0 21 07/16/24 06:30 97.5 110/69 (83) General: Awake and Alert, no acute distress. HEENT: Conjunctiva pink, Sclera clear, Mucus Membranes moist. Neck: Supple without masses and tenderness. Resp: Unlabored. Lungs clear to auscultation bilaterally. Heart: Regular Rate and rhythm, normal S1 and S2 without murmur, rub or gallop. Abdomen: Soft and non tender no organomegaly Extremities: No cyanosis,clubbing or edema. Skin: Warm and Dry. *Problems/Diagnosis: (1) Alcohol withdrawal (2) Opioid abuse with intoxication Total Time Spent on D/C: Up to 30 Minutes Date of Service: July 16, 2024 Billing Provider: DEV ORTEGA MD,WINNIE, RES July 16, 2024 15:37
== END 2024-07-16 14:05 | disposition home or self-care (01) | DRG 812 ==
LOC: ER 14:53 → ED HOLD 22:09 → PCU 3S 07-09 → SUR 3N 07-15 21:00
PROVIDERS: ADMIT Internal Medicine Critical Care Medicine; ATTEND Family Medicine
DX: T40.411A Poisoning by fentanyl or fentanyl analogs, accidental (unintentional), initial encounter (principal); M62.82 Rhabdomyolysis; J44.9 Chronic obstructive pulmonary disease, unspecified; F15.90 Other stimulant use, unspecified, uncomplicated; F10.230 Alcohol dependence with withdrawal, uncomplicated; Y92.89 Other specified places as the place of occurrence of the external cause; Z72.0 Tobacco use
CPT/HCPCS: 36415; 70450; 71045; 80053; 80305; 80320; 81001; 82550; 82948; 83605; 83615; 83735; 83874; 84100; 84132; 84484; 84550; 85025; 87081; 92508; 92616; 93005; 94640; 94760; 96361; 96365; 96375; 96376; 97116; 97161; 97530; 99285; A4314; A4338; A4353; A4620; A5200; A6253; A6258; A6446; A6449; C1758; G0378; J0131; J1630; J1650; J2060; J2310; J2405; J3360; J3411; J3480; J3490; J7030; J7040; J7042; J7120